=== PATIENT | male | born 1960 | race Caucasian/White ===

== ENCOUNTER 2019-06-13 18:13 | Observation (INO) | payer MEDICAID, SELFPAY ==
[2015-06-07 19:12] VITALS: BMI 24.7
--- NOTE | 2019-06-13 17:46 | HP.PCM_ITS ---
History of Present Illness Date of Admission: 06/13/19 Chief Complaint: chest pain The patient is a 59 year old M with past medical history of CAD status post stents x3 in 2014 at [facility] as well as hypertension and hyperlipidemia. He was admitted as a transfer from [facility] on 06/13/2019. He had reported to the above-mentioned outside hospital with a complaint of chest pain and exertional shortness of breath for 2 days prior to admission. Chest pain was pressure-like and burning and aggravated by the slightest exertion and relieved by rest. He was seen with a shortness of breath which was severely worsened by exertion and then relieved by rest. He therefore decided to come into the ED as he said he felt a similar way when he came in with chest pain 4 years ago and was transferred to [facility] and had stents placed. Per workup done at [facility], EKG showed no acute ST changes. Initial troponin was negative and BNP was only 17. Labs were otherwise within normal limits. He has been admitted to be managed for chest pain to rule out ACS. [] Past Medical History Past Medical History (Chronic Problems): Chronic Problems GERD (gastroesophageal reflux disease) (Chronic) Palpitations (Chronic) Nicotine dependence (Chronic) Allergies No Known Allergies Allergy (Verified 10/27/14 15:15) Home Medications: Ambulatory Orders Medication Instructions Recorded Aspirin [Aspirin, Baby] 81 mg PO DAILY@0800 01/13/14 Clopidogrel Bisulfate [Clopidogrel] 75 mg PO DAILY 01/28/14 Simvastatin [Zocor] 40 mg PO QHS 10/27/14 Lisinopril [Zestril] 5 mg PO DAILY 06/01/15 Omeprazole [Prilosec] 20 mg PO DAILY 06/01/15 Oxycodone HCl/Acetaminophen 1 - 2 tablet PO Q4H PRN PRN 06/01/15 [Percocet 5/325] Enoxaparin [Lovenox] 40 mg SC DAILY@0600 06/07/15 Alogliptin Benzoate [Alogliptin] 12.5 mg PO DAILY 06/13/19 Surgical History: - - He had his right index finger amputated in an accident at the [facility]. stents x 3 Psychiatric History: No pertinent psych hx Lives: Alone Smoking Status: Former smoker Alcohol: None Drugs: Marijuana - *Family History Maternal History Items: No pertinent history Paternal History Items: Cancer - His father of lung cancer at a young age., No pertinent history Sibling History Items: Heart Disease - He has 2 brothers who have had coronary artery bypass grafting and another brother who has had stents. Review of Systems Constitutional: Denies: Chills, Fever, Weight Change Eyes: Denies: Blurred vision HEENT: Denies: Head Aches, Sinus Congestion, Sinus Drainage Cardiovascular: Reports: Chest Pain, Chest Pressure. Denies: Chest Tightness, Edema, Heaviness, Light Headedness, Orthopnea, Paroxysmal Noc. Dyspnea, Syncope Respiratory: Reports: Shortness of Breath, Shortness of breath upon exertion. Denies: Cough, Shortness of breath at rest, Sputum production Gastrointestinal: Denies: Abdominal Pain, Nausea, Vomiting Genitourinary: Denies: Dysuria Musculoskeletal: Denies: Joint Pain, Joint Tenderness Skin: Denies: Rash, Wounds Neurological: Denies: Numbness, Tingling, Focal weakness Psychiatric: Denies: Anxiety, Depression, Homicidal Ideations, Suicidal Ideations Hematologic/ Lymphatic: Denies: Easy Bruising, Easy Bleeding VTE Information - Inpt Only VTE Present on Admission: No VTE Pharm Prophylaxis ordered?: Yes - Physical Exam General: Alert, Oriented x3, Cooperative, No apparent distress HEENT: Atraumatic, PERRLA, EOMI, Normocephalic Oral: Moist Mucosa Neck: Supple, No JVD, Negative Carotid Bruits Lungs: Clear to auscultation, Normal air movement, No rhonchi, No wheeze Cardiovascular: Regular rate, Regular Rhythm, Normal S1, Normal S2, No murmurs Abdomen: Bowel Sounds Present, Soft, Non Tender, Non-Distended, No Hepato-splen omegaly Extremities: No clubbing, No cyanosis, No edema, Capillary Refill Less than 3 Seconds Skin: No rashes, No breakdown Musculoskeletal: No Tenderness to Palpation of Joints or Extremities Lymphatic: No Cervical, Supraclavicular, or Inguinal Adenopathy Neurological: Cranial nerves II-XII grossly intact, Neuro grossly intact, Motor Exam 5/5 strength throughout Psych/Mental Status: Normal Affect, Appropriate, Alert and oriented to time, place, person, mood and affect Body Mass Index (BMI) 24.7 Finger Stick Blood Glucose 195 Assessment/Plan All Active Problems HTN (hypertension) (Acute) Chest pain (Acute) Hyperglycemia (Acute) 59-year-old admitted with a complaint of chest pain and exertional shortness of breath. 1. Chest pain, to r/o ACS * admit to PCU with telemetry * cycle troponins * repeat EKG * SL nitroglycerin prn; continue aspirin 81mg daily * consult cardiology-Dr. Mitchell the patient would benefit from cardiac cath in the office stress test for us on account of his classic symptoms and history of CAD with 3 stents. * keep NPO past midnight for cardiac cath * continue plavix and high intensity statin * 2D echo * 2. Hypertension: on lisinopril and metoprolol. Fairly controlled 3. Hyperlipidemia: on statin DVT prophylaxis: lovenox Code Visit OBSV E&M: 32203 Initial observation care L3
[2019-06-13 17:47] VITALS: BP 146/78; PULSE 80; RESP 16; TEMP 36.7; O2SAT 97
[2019-06-13 17:54] VITALS: BMI 23.9
[2019-06-13 17:56] VITALS: BMI 23.9
[2019-06-13 18:27] VITALS: PULSE 75
[2019-06-13 18:36] LABS: Cholesterol 148 mg/dL (200); High Density Lipoprotein 34 mg/dL; Triglycerides 364 mg/dL; Very Low Density Lipoprotein 73 mg/dL (5-40)
[2019-06-13 18:55] VITALS: PULSE 102
[2019-06-13 19:44] VITALS: O2SAT 97
[2019-06-13 21:27] LABS: Hemoglobin A1c 7.2 % (4.2-6.3)
[2019-06-13 22:19] VITALS: BP 103/73; PULSE 84; RESP 11; TEMP 36.6; O2SAT 96
--- NOTE | 2019-06-13 22:29 | NURSING ---
Pt upset at this time. Pt doesn't want bothered overnight. States you go to the doctor to get rest. This RN educated pt that we need to monitor him. This RN told pt that she will be into his room around 04:00 to check his vital signs.
[2019-06-14] VITALS (20 sets, daily range): BP systolic 109–164; BP diastolic 57–104; PULSE 73–103; RESP 7–20; TEMP 36.5–37.1; O2SAT 94–99
--- NOTE | 2019-06-14 05:55 | ECHOD_ITS ---
Reason For Study: Chest pain Procedure This was a 2D Doppler, Color Flow transthoracic echocardiogram. Exam performed portable in patient room. Left Ventricle Normal LV size. The estimated ejection fraction is 45-50 %. Stage 1 diastolic dysfunction. There is mild global hypokinesis of the left ventricle. Right Ventricle Normal RV size. Normal systolic function. Atria Normal left atrium. Normal right atrium. No doppler evidence for ASD. Mitral Valve There is no mitral valve stenosis. Trivial mitral valve insufficiency. Tricuspid Valve There is no tricuspid stenosis. Trivial tricuspid valve insufficiency. Unable to estimate RV systolic pressure due to insufficient tricuspid regurgitant envelope. Aortic Valve Trisinus/trileaflet aortic valve. There is no aortic stenosis. No aortic valve insufficiency. Pulmonic Valve There is no pulmonic valvular stenosis. No pulmonic valve insufficiency. Great Vessels Normal aortic root. Pericardium/Pleural No pericardial effusion. MMode/2D Measurements & Calculations LVIDd: 4.4 cm IVSd: 0.83 cm Ao root diam: 3.0 cm LVIDs: 3.0 cm LVPWd: 0.91 cm RVDd: 2.7 cm FS: 32.7 % LAV(MOD-bp): 25.1 ml LA A4 area: 11.7 cm2 LA dimension(2D): 3.0 cm LAV(MOD-bp) Indexed: 15.8 ml/m2 LAV(MOD-sp2): 21.4 ml LAV(MOD-sp4): 26.7 ml RA A4 area: 10.6 cm2 Doppler Measurements & Calculations MV E max momo: 44.4 cm/sec Lat Peak E' Momo: 7.4 cm/sec Med Peak E' Momo: 4.4 cm/sec MV A max momo: 52.5 cm/sec E/E' lat: 6.0 E/E' med: 10.1 MV E/A: 0.85 Ao V2 max: 84.9 cm/sec LV V1 max: 70.1 cm/sec PA V2 max: 88.2 cm/sec Ao max P.9 mmHg LV V1 max P.0 mmHg TR max momo: 195.7 cm/sec TR max P.3 mmHg Interpretation Summary The estimated ejection fraction is 45-50 %. Stage 1 diastolic dysfunction. Trivial mitral valve insufficiency. Ordering Physician: Yadira Gandara Referring Physician: MD Anu Karthik Performed By: Kina Hughes RDCS
[2019-06-14 05:58] LABS: Absolute Lymphocyte Count 2.43 X10^3/uL (0.83-4.51); Absolute Neutrophil Count 5.2 X10^3/uL (2.0-7.7); Basophil# 0.08 X10^3/uL; Basophil% 0.9 % (0-1); Eosinophil# 0.18 X10^3/uL; Eosinophils% 2.1 % (0-5); Hematocrit 42.2 % (40-54); Hemoglobin 13.5 g/dL (13.0-16.5); Lymphocyte # 2.43 X10^3/ul (4.0); Mean Corpuscular Hgb 29.1 pg (27.0-32.0); Mean Corpuscular Volume 90.9 fL (80-94); Mean Platelet Vol. 8.7 fl (6.2-12.0); Monocyte# 0.78 X10^3/uL; NRBC Flagged by Analyzer 0 % (0-5); Neutrophil # 5.17 X10^3/uL (2.7-7.7); Neutrophil % 59.7 % (47-70); Platelet Count 249 K/mm3 (150-450); RBC Distribution Width CV 12.1 % (11.6-14.6); RBC Distribution Width SD 40.4 fl (35.1-43.9); Red Blood Count 4.64 M/mm3 (4.6-6.2); White Blood Count 8.7 K/mm3 (4.4-11.0)
[2019-06-14 06:12] LABS: Anion Gap 7 (5-15); BUN 15 mg/dL (7-18); BUN/Creat Ratio 14.3 RATIO (10-20); Chloride 110 mmol/L (98-107); Creatinine, Serum 1.05 mg/dL (0.70-1.30); EST Glomerular Filtration Rate 77 mL/min (>60); Est Glom Filt Rate - Afr Amer 94 mL/min (>60); Estimated Creatinine Clearance 59.94 ml/min; Glucose 143 mg/dL (74-106); Potassium 4.2 mmol/L (3.5-5.1); Sodium Level 143 mmol/L (136-145)
--- NOTE | 2019-06-14 09:25 | CASEMGMT ---
According to the [facility] Community plan website, the following are in-network tertiary facilities: [facility], [facility], [facility], [facility], [facility], [facility], [facility], [facility], [facility], and . Prateek GUERRERO CM
--- NOTE | 2019-06-14 12:02 | CON.PCM_ITS ---
Problem List (1) Chest pain Status: Acute Reason for Consult Date of Consultation: 06/14/19 Reason for Consultation: chest pain History of Present Illness: The patient is a 59 year old M with past medical history of CAD status post stents x3(mid and proximal RCA, 3.5mm BMS) in 2014 at [facility] as well as hypertension and hyperlipidemia. He was admitted as a transfer from [facility] on 06/13/2019. He had reported to the above-mentioned outside hospital with a complaint of chest pain and exertional shortness of breath for 2 days prior to admission. Chest pain was pressure-like and burning and aggravated by the slightest exertion and relieved by rest. He was seen with a shortness of breath which was severely worsened by exertion and then relieved by rest. He therefore decided to come into the ED as he said he felt a similar way when he came in with chest pain 4 years ago and was transferred to [facility] and had stents placed. Per workup done at [facility], EKG showed no acute ST changes. Initial troponin was negative and BNP was only 17. Labs were otherwise within normal limits. He has been admitted to be managed for chest pain to rule out ACS. Review of systems: All systems reviewed. Also is negative except that in the HPI. Past Medical History Allergies/Adverse Reactions: Allergies No Known Allergies Allergy (Verified 10/27/14 15:15) Home Medications: Ambulatory Orders Medication Instructions Recorded Aspirin [Aspirin, Baby] 81 mg PO DAILY@0800 01/13/14 Clopidogrel Bisulfate [Clopidogrel] 75 mg PO DAILY 01/28/14 Simvastatin [Zocor] 40 mg PO QHS 10/27/14 Lisinopril [Zestril] 5 mg PO DAILY 06/01/15 Omeprazole [Prilosec] 20 mg PO DAILY 06/01/15 Oxycodone HCl/Acetaminophen 1 - 2 tablet PO Q4H PRN PRN 06/01/15 [Percocet 5/325] Alogliptin Benzoate [Alogliptin] 12.5 mg PO DAILY 06/13/19 Metoprolol Succinate 50 mg PO DAILY 06/13/19 metFORMIN (XR) [Glucophage Xr] 1,000 mg PO BID 06/13/19 Past Medical History (Chronic Problems): Chronic Problems GERD (gastroesophageal reflux disease) (Chronic) Palpitations (Chronic) Nicotine dependence (Chronic) Surgical History: - - He had his right index finger amputated in an accident at the [facility]. stents x 3 Psychiatric History: No pertinent psych hx - *Family History Maternal History Items: No pertinent history Paternal History Items: Cancer - His father of lung cancer at a young age., No pertinent history Sibling History Items: Heart Disease - He has 2 brothers who have had coronary artery bypass grafting and another brother who has had stents. Lives: Alone Smoking Status: Former smoker Alcohol: None Drugs: Marijuana Objective: Vital Signs Temp Pulse Resp BP Pulse Ox 98 F 82 16 145/73 H 96 06/14/19 11:30 06/14/19 11:30 06/14/19 11:30 06/14/19 11:30 06/14/19 11:30 Oxygen Delivery Method Room Air Weight: 130 lb 11.746 oz Body Mass Index (BMI) 23.9 Finger Stick Blood Glucose 195 Intake and Output for Last 24 Hours 06/12/19 06/13/19 06/14/19 23:59 23:59 23:59 Intake Total 0 / 0 120 / 120 Output Total 0 / 0 0 / 0 Balance 0 / 0 120 / 120 General: Awake, Alert, Oriented x 3 HEENT: Atraumatic Oral: Moist Mucosa Neck: Supple Lungs: Clear to auscultation Cardiovascular: Regular Rhythm Abdomen: Soft Extremities: No edema Skin: No Rashes Psych/Mental Status: Appropriate 06/13/19 18:03: Troponin I < 0.015, Triglycerides 364 H, Cholesterol 148, LDL Cholesterol 41, VLDL Cholesterol 73 H, HDL Cholesterol 34 L 06/13/19 20:40: Troponin I < 0.015 06/13/19 20:47: Hemoglobin A1c 7.2 H 06/14/19 00:40: Troponin I < 0.015 06/14/19 05:34: WBC 8.7, RBC 4.64, Hgb 13.5, Hct 42.2, MCV 90.9, MCH 29.1, MCHC 32.0, Plt Count 249, MPV 8.7, Immature Gran % (Auto) 0.300, Neut % (Auto) 59.7, Lymph % (Auto) 28.0, [place] % (Auto) 9.0, Eos % (Auto) 2.1, Baso % (Auto) 0.9, Absolute Neuts (auto) 5.2, Nucleated RBC % 0 06/14/19 05:34: Sodium 143, Potassium 4.2, Chloride 110 H, Carbon Dioxide 26.0, Anion Gap 7, BUN 15, Creatinine 1.05, Est GFR (MDRD) Af Amer 94, Est GFR (MDRD) Non-Af 77, BUN/Creatinine Ratio 14.3, Glucose 143 H, Calcium 9.0 Rhythm: EKG: ECHO: Stress Test: Cardiac Cath: PCI: CT Surgery: Holter monitor: EPS: PPM: CXR: Chest CT Scan: Assessment/Plan 1. Chest pain: Patient's chest pain is similar to what he felt prior to PCI in 2015. I think it will be reasonable to proceed with coronary angiography to evaluate this chest pain further. He did have other residual stenoses which were not severe enough at that time to require PCI. Risks and benefits discussed with the patient in detail.
--- NOTE | 2019-06-14 13:59 | NURSING ---
verbal report given tran cunningham rn in [facility] [employer]
--- NOTE | 2019-06-14 15:43 | NURSING ---
verbal report given to CESAR soto in ICU
--- NOTE | 2019-06-14 16:00 | EKG12_ITS ---
Test Reason : AM EKG Blood Pressure : / mmHG Vent. Rate : 081 BPM Atrial Rate : 081 BPM P-R Int : 160 ms QRS Dur : 096 ms QT Int : 378 ms P-R-T Axes : 047 -42 043 degrees QTc Int : 439 ms Normal sinus rhythm Left axis deviation Nonspecific ST abnormality Abnormal ECG Confirmed by JELANI PRINCE, JESUS ([id number]), map editor VIC HERRON ([id number]) on 06/26/2019 2:22:24 PM Referred By: Yadira Gandara Confirmed By:JESUS PALOMARES MD
[2019-06-14] MEDS: 0.9% Normal Saline 1,000 ML 60 ML IV (16:45)
--- NOTE | 2019-06-14 17:34 | PCM.PROGNOTE ---
Subjective: Patient was seen and examined today in the ICU, he underwent coronary angiography today and had a balloon angioplasty of the right coronary artery near his previous stent. Today there is been some swelling in his left forearm, cardiology is aware of this and is examining him in the ICU. Patient is able to move the fingers of his right hand, he has some pain in his right forearm and his forearm is swollen and firm but the patient does not appear to be an acute distress. - Physical Exam General: Alert, Oriented x3, Cooperative, No apparent distress, Well developed, Well nourished HEENT: Atraumatic, PERRLA, EOMI, Normocephalic Oral: Moist Mucosa Neck: Supple, Trachea Midline, Thyroid Normal Size and Texture Lungs: Clear to auscultation, Normal air movement, No rhonchi, No wheeze, No rales Cardiovascular: Regular rate, Regular Rhythm, Normal S1, Normal S2, No murmurs, PMI Normal, No rub noted Abdomen: Bowel Sounds Present, Soft, Non Tender, Non-Distended Extremities: No clubbing, No cyanosis, Capillary Refill Less than 3 Seconds, Edema - Generalized edema is noted in the patient's right forearm Skin: No rashes, No breakdown Musculoskeletal: No Tenderness to Palpation of Joints or Extremities Neurological: Cranial nerves II-XII grossly intact, Neuro grossly intact, Sensory exam intact to light touch and pain Psych/Mental Status: Normal Affect, Appropriate, Alert and oriented to time, place, person, mood and affect Vital Signs Temp Pulse Resp BP Pulse Ox 98 F 73 16 142/73 H 98 06/14/19 11:30 06/14/19 16:30 06/14/19 16:30 06/14/19 16:30 06/14/19 17:01 Oxygen Delivery Method Room Air Weight: 59.3 kg Body Mass Index (BMI) 23.9 Finger Stick Blood Glucose 195 Intake and Output for Last 24 Hours 06/12/19 06/13/19 06/14/19 23:59 23:59 23:59 Intake Total 0 / 0 120 / 120 Output Total 0 / 0 0 / 0 Balance 0 / 0 120 / 120 Laboratory Tests Past 24 Hrs 06/13/19 06/13/19 06/13/19 18:03 20:40 20:47 WBC RBC Hgb Hct MCV MCH MCHC RDW Std Deviation RDW Coeff of Mendez Plt Count MPV Immature Gran % (Auto) Neut % (Auto) Lymph % (Auto) [place] % (Auto) Eos % (Auto) Baso % (Auto) Absolute Neuts (auto) Absolute Lymphs (auto) Nucleated RBC % Sodium Potassium Chloride Carbon Dioxide Anion Gap BUN Creatinine Estim Creat Clear Calc Est GFR (MDRD) Af Amer Est GFR (MDRD) Non-Af BUN/Creatinine Ratio Glucose Hemoglobin A1c 7.2 H Calcium Troponin I < 0.015 < 0.015 Triglycerides 364 H Cholesterol 148 LDL Cholesterol 41 VLDL Cholesterol 73 H HDL Cholesterol 34 L 06/14/19 06/14/19 06/14/19 00:40 05:34 05:34 WBC 8.7 RBC 4.64 Hgb 13.5 Hct 42.2 MCV 90.9 MCH 29.1 MCHC 32.0 RDW Std Deviation 40.4 RDW Coeff of Mendez 12.1 Plt Count 249 MPV 8.7 Immature Gran % (Auto) 0.300 Neut % (Auto) 59.7 Lymph % (Auto) 28.0 [place] % (Auto) 9.0 Eos % (Auto) 2.1 Baso % (Auto) 0.9 Absolute Neuts (auto) 5.2 Absolute Lymphs (auto) 2.43 Nucleated RBC % 0 Sodium 143 Potassium 4.2 Chloride 110 H Carbon Dioxide 26.0 Anion Gap 7 BUN 15 Creatinine 1.05 Estim Creat Clear Calc 59.94 Est GFR (MDRD) Af Amer 94 Est GFR (MDRD) Non-Af 77 BUN/Creatinine Ratio 14.3 Glucose 143 H Hemoglobin A1c Calcium 9.0 Troponin I < 0.015 Triglycerides Cholesterol LDL Cholesterol VLDL Cholesterol HDL Cholesterol Medical Necessity - Tobacco Use Smoking Status: Former smoker Assessment/Plan All Active Problems HTN (hypertension) (Acute) Chest pain (Acute) Hyperglycemia (Acute) #1 occlusive coronary artery disease right coronary artery-status post balloon angioplasty right coronary artery postop day 0-continue present care, cardiology is participating in his care #2 hypertension #3 hyperlipidemia #4 edema in the right forearm-probably secondary to extravasation of blood into the surrounding tissues from patient's cardiac catheterization-continue to observe per cardiology Code Visit Inpatient E&M: 42014 Subs Hosp L2
--- NOTE | 2019-06-14 18:03 | CL.I_ITS ---
Patient Name: ROSALIA HE Study Date: 06/14/2019 Performing: Yeimi Mitchell MD Ht: 62 inches 157 cm : 1960 Wt: 130.2 lbs 59 kg Age: 59 Gender: male BSA: 1.59 PROCEDURE(S) PERFORMED [id number]/LV [id number] GUIDED ACCESS [id number], SINGLE CORONARY ARTERY CLINICAL PROFILE AND CO-MORBIDITIES Indications: ACS <= 24 hrs Heart Failure: None Stress/Imaging Stress/Image Study Performed: No CAD Presentations: Unstable angina. CONCLUSIONS CAD as described. Successful PTCA of ISR of RCA. RECOMMENDATIONS Follow up with primary city secretary GALINA Samuel for at least 12 months DESCRIPTION OF PROCEDURE The patient arrived to the procedure lab. The risks and benefits of the procedure as well as a full d escription of our services here and lack of surgical backup were fully explained to the patient and/o r their significant other prior to the catheterization. The Timeout was completed, verifying the brianna ect patient and procedure. The patient's procedural site was prepped and draped in the usual fashion. Local anesthetic was given subcutaneously to right radial region with Lidocaine 2%. Using a modified Seldinger technique, and ultrasound guidance,arterial access was obtained via the right ulnar a 6Fr sheath was inserted.. Left Coronary Artery selective angiography was performed in multiple views us ing a 5 Fr. JL3.5 catheter. Right Coronary Artery selective angiography was then performed in multipl e views using a 5 Fr. JR 4 catheter. Left Ventriculography was performed in LUCAS projection using a 5 Fr. JR 4. LV to AO pullback pressures were then recorded. Right Coronary Artery selective angiography was then performed in multiple views using a 5 Fr. JR 4 catheter. Anomalous Circumflex Ar parrish selective angiography was then performed in multiple views using a 5 Fr. AL 1 catheter JR 4 Guide catheter was inserted and engaged into the RCA. BMW Guide wire was advanced to the RCA . Emerge [id number] Balloon catheter was inserted. PTCA balloon inflated at 6 atms for 16 secs. Angiogr am performed post balloon dilatation. The arterial sheath was pulled and a TR Band was applied for hemostasis w/ 12ml air CORONARY ANGIOGRAPHY DOMINANCE: Right Dominant LEFT HEART ASSESSMENT Left Ventricular Ejection Fraction: by LV Gram 55 % Inferior Hypokinesis - Mild LEFT MAIN: Mild luminal irregularities LEFT ANTERIOR DESCENDING ARTERY: MID LAD: 60 % Stenosis CIRCUMFLEX ARTERY: PROX CIRC: 65 % Stenosis. 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 RIGHT CORONARY ARTERY: MID RCA: 95 % Stenosis VALVE FINDINGS: No Aortic Valve Stenosis No Mitral Insufficency INTERVENTION INFORMATION LESION SITE: RCA (Mid) Lesion Complexity: High/C, chronic total occlusion: No, lesion at bifurcation: No, thrombus present: No, lesion length: 6 mm, culprit lesion: Yes, culprit lesion: Yes, Previously treated lesion: Yes, In -stent restenosis: Yes, Timeframe of previous treatment: >2 years, Previously treated with a stent: Y es Stent Type: with Non-YOHANNES Pre Stenosis: 95 % Pre intervention ANALI flow: 3 PROCEDURE: Balloon Angioplasty Post Stenosis: 0 % Post intervention ANALI flow: 3 Lesion Devices: Hodge .014 BMW [place] Straight 190cm Daniel Sci EMERGE MR 3.50x12 BALLOON Medtronic 6 Fr JR4.0 100cm Guide Catheter COMPLICATIONS No Complications PROCEDURE MEDICATIONS Versed 1 mg IV Fentanyl 50 mcg IV Versed 1 mg IV Fentanyl 25 mcg IV Fentanyl 25 mcg IV Oxygen: 2 L/min via nasal cannula Baby Aspirin (81mg) 1 Tabs PO 06/14/2019 15:44:00 Brilinta 180 mg PO @ 06/14/2019 15:44:09 Heparin given IA 06/14/2019 14:58:00 Heparin 1000 unit(s) IV 06/14/2019 15:18:02 Verapamil 2.5mg, Ntg 100mcgs, 3000 units of Heparin given IA 06/14/2019 14:58:00 SUMMARY OF HEMODYNAMIC DATA Time AIR REST ECG 14:30:59 AO 118/83 (98) SA 15:00:13 LV 153/-15, 3 15:03:53 LV 126/-11, 2 15:03:59 LV 130/-11, 4 15:04:36 LVp 133/-11, 2 15:04:42 AOp 132/79 (99) 15:04:47 Signed By Yeimi Mitchell MD On 06/14/2019 6:03:02 PM Yeimi Mitchell MD
[2019-06-14] MEDS: Atorvastatin Calcium 20 MG Tablet PO (21:34)
[2019-06-14] MEDS: TICAGRELOR 90 MG TABLET PO (21:35)
[2019-06-15] VITALS (13 sets, daily range): BP systolic 113–152; BP diastolic 66–98; PULSE 79–108; RESP 11–20; TEMP 36.1–36.9; O2SAT 94–99
[2019-06-15 04:24] LABS: Hemoglobin 12.5 g/dL (13.0-16.5); Mean Corp Hgb Conc 32.9 g/dL (32-36); Mean Corpuscular Hgb 29.6 pg (27.0-32.0); Mean Platelet Vol. 8.7 fl (6.2-12.0); Platelet Count 239 K/mm3 (150-450); RBC Distribution Width CV 12.1 % (11.6-14.6); RBC Distribution Width SD 39.8 fl (35.1-43.9); Red Blood Count 4.22 M/mm3 (4.6-6.2); White Blood Count 8.7 K/mm3 (4.4-11.0)
[2019-06-15 04:44] LABS: ALB/GLOB Ratio 1.1 RATIO (0.9-2.4); AST(SGOT) 22 U/L (15-37); Alanine Aminotransfer ALT/SGPT 36 U/L (16-61); Albumin, Serum 3.5 g/dL (3.2-5.0); Alkaline Phosphatase 50 U/L (45-117); Anion Gap 6 (5-15); BUN 16 mg/dL (7-18); BUN/Creat Ratio 14.7 RATIO (10-20); Calcium,Total 8.4 mg/dL (8.5-10.1); Chloride 110 mmol/L (98-107); Creatinine, Serum 1.09 mg/dL (0.70-1.30); EST Glomerular Filtration Rate 74 mL/min (>60); Est Glom Filt Rate - Afr Amer 90 mL/min (>60); Estimated Creatinine Clearance 57.74 ml/min; Globulin 3.3 g/dL (2.2-4.2); Glucose 155 mg/dL (74-106); Protein, Total 6.8 g/dL (6.4-8.2); Sodium Level 143 mmol/L (136-145)
[2019-06-15] MEDS: LINAGLIPTIN 5 MG TABLET PO (08:52)
[2019-06-15] MEDS: Pantoprazole Sodium 20 MG Tablet PO (08:52)
[2019-06-15] MEDS: TICAGRELOR 90 MG TABLET PO (08:52)
[2019-06-15] MEDS: Aspirin 81 MG TAB.CHEW PO (08:52)
[2019-06-15] MEDS: Metoprolol(XL)Succ 50 MG Tablet PO (08:52)
[2019-06-15] MEDS: Lisinopril 5 MG Tablet PO (08:53)
--- NOTE | 2019-06-15 09:46 | CM.UR ---
Patient will be discharged on Brilinta. Has [facility] community health plan. Per 2019 drug formulary Medication will cost $3.80 to $8.50 for the tier that Brilinta is on. Patient states that he has never had a copay for medication. Gets his medications from Tania Dangelo RN, CCM.
--- NOTE | 2019-06-15 11:35 | PCM.PN.CARD ---
Subjectve: The patient dates he feels better today. He denies any ongoing chest discomfort or difficulty breathing. He notes his right forearm feels better overall. He denies any loss of sensation or motor skills. Objective: Vital Signs Temp Pulse Resp BP Pulse Ox 98.3 F 90 11 L 145/82 H 95 06/15/19 08:00 06/15/19 10:00 06/15/19 10:00 06/15/19 10:00 06/15/19 10:00 Oxygen Delivery Method Room Air Weight: 130 lb 11.746 oz Body Mass Index (BMI) 23.9 Finger Stick Blood Glucose 195 Intake and Output for Last 24 Hours 06/13/19 06/14/19 06/15/19 23:59 23:59 23:59 Intake Total 0 / 0 960 / 1200 340 / 340 Output Total 0 / 0 400 / 400 300 / 300 Balance 0 / 0 560 / 800 40 / 40 General: Awake, Alert, Oriented x 3, Cooperative, No Acute Distress HEENT: Atraumatic, Normocephalic, PERRL, EOMI, Sclera Non Icteric Oral: Moist Mucosa Neck: Supple, Good ROM, No JVD Lungs: Clear to auscultation Cardiovascular: Regular Rhythm, Normal S1, Normal S2 - Normal right ulnar pulse Abdomen: Bowel Sounds Present, Soft, Non Tender Extremities: No edema, - - Right forearm: Hematoma: Mild appearing: Right ulnar pulse 2+/4+ with no obvious bruit Psych/Mental Status: Appropriate 06/15/19 04:10: WBC 8.7, RBC 4.22 L, Hgb 12.5 L, Hct 38.0 L, MCV 90.0, MCH 29.6, MCHC 32.9, Plt Count 239, MPV 8.7 06/15/19 04:10: Sodium 143, Potassium 4.0, Chloride 110 H, Carbon Dioxide 27.0, Anion Gap 6, BUN 16, Creatinine 1.09, Est GFR (MDRD) Af Amer 90, Est GFR (MDRD) Non-Af 74, BUN/Creatinine Ratio 14.7, Glucose 155 H, Calcium 8.4 L, Total Bilirubin 0.60 Rhythm: Sinus rhythm EKG: Sinus rhythm; left axis deviation; nonspecific T wave change Medical Necessity - Tobacco Use Smoking Status: Former smoker Assessment/Plan 1. CAD status post RCA PCI/PTCA/no stent The patient has subsequently undergone further evaluation in the cardiac catheterization laboratory. This led to a diagnosis of RCA in-stent restenosis. He subsequently underwent RCA PTCA/no stent. He was reported as having good angiographic results. He feels better. He appears to be symptomatically stable. He has had no acute cardiovascular findings since his procedures with respect to ongoing acute coronary syndrome type symptoms/events. He will need to continue medical therapy and outpatient follow-up. 2. Right forearm hematoma He does have a right forearm hematoma. It appears to be mild at this time. He has no loss of sensory or motor function in his right upper extremity. His H&H appears to be stable at this time. He will continue to monitor this. He will continue with outpatient follow-up. 3. Hyperlipidemia He will continue medical management. 4. Hypertension He will need to continue medical therapy with adjustment as needed. Comment: The patient's case was discussed and reviewed with patient and Dr. Graff. This note was generated with [employer] dictation software. It may contain incorrect words, spelling, and punctuation that were not noted in checking the note before signing.
--- NOTE | 2019-06-15 11:41 | DCINST_ITS ---
You will use the following diet at home:: Calorie/Carbohydrate Controlled (specify 1200, 1400, etc) - 1800 carlos Your food should be the consistency of: Regular Your liquids should be the consistency of: Regular/Thin Discharge Activity: Return to Normal Activity Weight Bearing Status: Full weight bearing Allergies/Adverse Reactions: Allergies No Known Allergies Allergy (Verified 10/27/14 15:15) Medications to take at Discharge Aspirin [Aspirin, Baby] 81 mg PO DAILY@0800 01/13/14 Simvastatin [Zocor] 40 mg PO QHS 10/27/14 Lisinopril [Zestril] 5 mg PO DAILY 06/01/15 Omeprazole [Prilosec] 20 mg PO DAILY 06/01/15 Oxycodone HCl/Acetaminophen [Percocet 5-325] 1 - 2 tablet PO Q4H PRN PRN 06/01/15 Alogliptin Benzoate [Alogliptin] 12.5 mg PO DAILY 06/13/19 Metoprolol Succinate 50 mg PO DAILY 06/13/19 metFORMIN (XR) [Glucophage Xr] 1,000 mg PO BID 06/13/19 Ticagrelor [Brilinta] 90 mg PO BID #60 tab 06/15/19 The following prescriptions were given: Ticagrelor [Brilinta] 90 mg PO BID #60 tab Prescription Printed Primary Care Physician: Karthik Brennan DO [Primary Care Provider] - Please follow up with your Primary Care Physician in: in 2-3 weeks Test Results: Test results from this visit will be discussed in further detail at your follow- up appointment, if applicable. Please Follow Up With: Zakiya Mitchell MD When: as directed
--- NOTE | 2019-06-15 17:48 | PCM.DC.SUM ---
Discharge Date and Diagnosis Date of Admission: 06/13/19 Date of Discharge: 06/15/19 - Primary Discharge Diagnosis 1 occlusive coronary artery disease right coronary artery #2 unstable angina #3 hypertension #4 hyperlipidemia #5 edema in the right forearm-probably secondary to extravasation of blood into the surrounding tissues from patient's cardiac catheterization #6 uncontrolled type 2 diabetes - Secondary Discharge Diagnosis Chronic Problems GERD (gastroesophageal reflux disease) (Chronic) Palpitations (Chronic) Nicotine dependence (Chronic) Hospital Course and Treatment Operations: None Procedures: 2-D Echocardiogram, Cardiac catheterization - PTCA of right coronary artery Summary of Care Provided: The patient is a 59 year old M was admitted to PCU on telemetry as a direct admission from [facility] where he went to the emergency room for evaluation of chest pain. Patient's troponins were unremarkable at the time of admission, patient had a history of coronary artery disease with 3 coronary artery stents previously placed. Patient is cardiac enzymes are cycled and these remain normal, he was seen in consultation by radiology who advised repeat cardiac catheterization-this was performed on 06/14/2019 and it showed occlusive coronary artery disease to the right coronary artery near the location of the previous stent in the vicinity. This area underwent balloon angioplasty but no stent was able to be placed in the area. Patient had some mild swelling of his right arm after the procedure was finished but this did not appear to be a problem. Patient had no significant arrhythmias during his stay in the ICU. On 06/15/2019, patient was seen and examined: On examination he appeared in good health and spirits. Vital signs as documented. Skin warm and dry and without overt rashes. Neck without JVD. Lungs clear. Heart exam notable for regular rhythm, normal sounds and absence of murmurs, rubs or gallops. Abdomen unremarkable and without evidence of organomegaly, masses, or abdominal aortic enlargement. Extremities-there is some mild edema of the right forearm noted to be present. Neuro: Cranial nerves II through XII are grossly intact, no focal motor deficits were noted, sensation to light touch and pinprick intact. Psych: Patient is alert and oriented x3, he does not appear anxious or depressed On 06/07/2019, patient was seen and examined felt to be in stable condition for discharge home - Physical Exam Vital Signs Temp Pulse Resp BP Pulse Ox 98.3 F 90 11 L 145/82 H 95 06/15/19 08:00 06/15/19 10:00 06/15/19 10:00 06/15/19 10:00 06/15/19 10:00 Oxygen Delivery Method Room Air Weight: 59.3 kg Body Mass Index (BMI) 23.9 Finger Stick Blood Glucose 195 Intake and Output for Last 24 Hours 06/13/19 06/14/19 06/15/19 23:59 23:59 23:59 Intake Total 0 / 0 960 / 1200 340 / 340 Output Total 0 / 0 400 / 400 300 / 300 Balance 0 / 0 560 / 800 40 / 40 Laboratory Tests Past 24 Hrs 06/15/19 06/15/19 04:10 04:10 WBC 8.7 RBC 4.22 L Hgb 12.5 L Hct 38.0 L MCV 90.0 MCH 29.6 MCHC 32.9 RDW Std Deviation 39.8 RDW Coeff of Mendez 12.1 Plt Count 239 MPV 8.7 Sodium 143 Potassium 4.0 Chloride 110 H Carbon Dioxide 27.0 Anion Gap 6 BUN 16 Creatinine 1.09 Estim Creat Clear Calc 57.74 Est GFR (MDRD) Af Amer 90 Est GFR (MDRD) Non-Af 74 BUN/Creatinine Ratio 14.7 Glucose 155 H Calcium 8.4 L Total Bilirubin 0.60 AST 22 ALT 36 Alkaline Phosphatase 50 Total Protein 6.8 Albumin 3.5 Globulin 3.3 Albumin/Globulin Ratio 1.1 Discharge Activity: Return to Normal Activity Weight Bearing Status: Full weight bearing Home Medications: Medications to take at Discharge Aspirin [Aspirin, Baby] 81 mg PO DAILY@0800 01/13/14 Simvastatin [Zocor] 40 mg PO QHS 10/27/14 Lisinopril [Zestril] 5 mg PO DAILY 06/01/15 Omeprazole [Prilosec] 20 mg PO DAILY 06/01/15 Oxycodone HCl/Acetaminophen [Percocet 5-325] 1 - 2 tablet PO Q4H PRN PRN 06/01/15 Alogliptin Benzoate [Alogliptin] 12.5 mg PO DAILY 06/13/19 Metoprolol Succinate 50 mg PO DAILY 06/13/19 metFORMIN (XR) [Glucophage Xr] 1,000 mg PO BID 06/13/19 Ticagrelor [Brilinta] 90 mg PO BID #60 tab 06/15/19 Following Prescrptions Were Given to Patient: Ticagrelor [Brilinta] 90 mg PO BID #60 tab Prescription Printed Primary Care Physician: Karthik Brennan DO [Primary Care Provider] - Please follow up with your Primary Care Physician in: in 2-3 weeks Please Follow Up With: Zakiya Mitchell MD When: as directed Disposition: Home Minutes spent on discharge:: 32 Patient Condition:: Stable Medical Necessity - Tobacco Use Smoking Status: Former smoker Meaningful Use Info Meaningful Use Diagnoses (Choose all that apply): None applicable Code Visit Inpatient E&M: 89884 Disch Hosp
--- NOTE | 2019-06-17 07:05 | CRPH1.INSTRU ---
General Education CAD and cardiac anatomy and function:: Patient communicates acknowledgment Explanation of diagnoses and procedures:: Patient communicates acknowledgment Sign/Symptoms of ND:: Patient communicates acknowledgment Antiplatelet therapy: Patient communicates acknowledgment Proper use of NTG-SL: Patient communicates acknowledgment Emergency procedures and activation of EMS: Patient communicates acknowledgment Compliance of all prescribed medications: Patient communicates acknowledgment Dyslipidemia Patient Dyslipidemia Risk Factors Are:: Total Cholesterol, Triglycerides, HDL, LDL Recommendations Include:: Lipid profile provided Dyslipidemia Response Code:: Patient communicates acknowledgment Hypertension Patient Hypertension Risk Factors Are:: No documented hx of HTN Recommendations Include:: Maintain BP <130/85, BP <130/80 if diabetic, DASH dietary guidelines Hypertension:: Patient communicates acknowledgment Heart Disease Patient Heart Disease Risk Factors Are:: Family history of heart disease < 65 years old Recommendations Include:: Educated family members of their risk, Educated family members of importance of prevention of heart disease Heart Disease Response Code:: Patient communicates acknowledgment
--- NOTE | 2019-06-17 07:09 | CRPHASE1 ---
Patient Communication PHII Cardiac Rehab Discussed with Patient:: Yes Guide to Cardiac Rehab Given to Patient:: Yes Cardiac Rehab Facility Choice List Given to Patient:: Yes Choice Program [facility] CR PHII:: Communication Given to CR, Refer to [facility] Application Developer Manager:: Zakiya Mitchell PCP:: Karthik Brennan Phase II Cardiac Rehab:: Yes Sessions:: 36 sessions - 3 days/wk, 12 weeks Risk Factors/Lifestyle Smoking Status: Former smoker Second-Hand Smoke:: Yes Hx Dyslipidemia: Yes Hx Obesity: No Weight:: 130 lb 11.746 oz ETOH: No Caffeine: Yes Substance Abuse: No Risk Factor for Sedentary Lifestyle: Moderate Risk - 2 BOTHER WHO HAVE HAD CORONARY BYPASS GRAFTS Family History: High Cholesterol, Hypertension Past Cardiac Illness: Myocardial Infarction, Previous PCI w/Stent - STENTS X 3 IN 2014 Laboratory Values: Cardiac Rehab Phase I Labs Hemoglobin A1c 7.2 % (4.2-6.3) H 06/13/19 20:47 Triglycerides 364 mg/dL (-199) H 06/13/19 18:03 Cholesterol 148 mg/dL (200) 06/13/19 18:03 LDL Cholesterol 41 mg/dL (0-130) 06/13/19 18:03 HDL Cholesterol 34 mg/dL (40-) L 06/13/19 18:03 Phase I Education Given On:: Umbarger, Nutrition, Antiplatelet medication, Smoking cessation Issues Affecting Care:: None Knowledge of Condition:: Yes Learning Preferences: Verbal, Written, Audio/Visual, Demonstration Hospital Course Presenting Symptoms:: CHEST PAIN AND SHORTNESS OF BREATH Pain Description: Burning, Pressure Hospital Course/Complications:: ADMITTED Medical/Surgical History [place]:: Yes CAD:: Yes Hypertension:: No - NOT PREVIOUSLY MENTIONED Dyslipidemia:: Yes PTCA:: Yes - 2015 AT [facility] Discharge/Home/Social Eval Discharge Disposition: Home Marital Status: Cardiac Rehabilitation Info Cardiac Rehabilitation Program Information: Cardiac Rehabilitation is important for patients like you who are recovering from a heart problem. Cardiac rehabilitation programs are recognized as integral to the continued care of the patient with coronary heart disease. The cardiac rehabilitation program is designed to optimize a patient's physical, psychological, and social functioning. Health home health care worker work in cardiac rehabilitation programs and assist you with getting the treatments you need to get stronger and healthier - like exercise, healthy eating habits, and medications. Cardiac rehabilitation has been show to help people with heart problems live longer and have better life enjoyment than people who do not go to cardiac rehabilitation. Please contact the Cardiac Rehabilitation Program at [facility] at in two weeks if you have not heard from them.
== END 2019-06-15 11:50 | disposition home or self-care (01) ==
LOC: PCU 06-14 09:33 → ICU 06-14 16:30
PROVIDERS: Specialist; Admitting Provider Student in an Organized Health Care Education/Training Program; Family Provider Preventive Medicine Occupational Medicine; PCP Preventive Medicine Occupational Medicine; Referring Provider Student in an Organized Health Care Education/Training Program; Visit Provider Internal Medicine
DX: I25.110 Atherosclerotic heart disease of native coronary artery with unstable angina pectoris (principal); I10 Essential (primary) hypertension; E78.5 Hyperlipidemia, unspecified; K21.9 Gastro-esophageal reflux disease without esophagitis; R60.0 Localized edema; E11.65 Type 2 diabetes mellitus with hyperglycemia; Z79.899 Other long term (current) drug therapy; Z95.5 Presence of coronary angioplasty implant and graft; Z79.02 Long term (current) use of antithrombotics/antiplatelets; Z79.82 Long term (current) use of aspirin; Z87.891 Personal history of nicotine dependence
CPT/HCPCS: 36415; 80048; 80053; 80061; 83036; 84484; 85025; 85027; 92920; 93005; 93306; 93458; 99152; 99218; J7030; Q9967; C1725; C1769; C1887; C1894; G0378; J1327

== ENCOUNTER 2019-09-14 11:47 | Observation (INO) | payer MEDICAID, SELFPAY ==
[2019-07-09 14:29] VITALS: BMI 24.7
[2019-09-14] VITALS (10 sets, daily range): BP systolic 119–151; BP diastolic 68–88; PULSE 74–97; RESP 11–18; TEMP 36.4–37.2; O2SAT 94–96; BMI 24.7; BMI 24.5; BMI 24.6
--- NOTE | 2019-09-14 12:12 | EKG12_ITS ---
Test Reason : CP ADMISSION Blood Pressure : / mmHG Vent. Rate : 083 BPM Atrial Rate : 083 BPM P-R Int : 162 ms QRS Dur : 102 ms QT Int : 378 ms P-R-T Axes : 056 -39 040 degrees QTc Int : 444 ms Normal sinus rhythm Left axis deviation Abnormal ECG Confirmed by JELANI PRINCE, JESUS ([id number]), editor farm journal VIC HERRON ([id number]) on 09/19/2019 11:47:14 AM Referred By: Benjamin Graff Confirmed By:JESUS PALOMARES MD
--- NOTE | 2019-09-14 12:12 | RAD_ITS ---
STUDY: X-RAY CHEST REASON FOR EXAM: Male, 59 years old. left anterior stabbing chest pain TECHNIQUE: AP COMPARISON: 06/07/2015 FINDINGS: EKG leads project over the chest. Granuloma in the right lung base is stable. No airspace consolidation. There is no demonstrated pleural abnormality. Normal size heart. There are calcified mediastinal lymph nodes. Normal visualized pulmonary arteries. Normal visualized aortic arch and descending thoracic aorta. No acute bony process. There is no demonstrated abnormality of the visualized soft tissue structures of the upper abdomen. RAD/Chest 1 View (Portable) IMPRESSION: Stable, nonacute portable x-ray examination of the chest. Electronically Signed: Ignacio Fraire MD ([place]) at 12:38 EST , Service support ,
--- NOTE | 2019-09-14 12:13 | ED.VIS.GEN ---
History of Present Illness Chief Complaint: Chest Pain Informant: Patient Onset: Weeks Context: Onset with activity Timing: Intermittent Quality: Chest burning with dyspnea and nausea Location: Anterior mid chest Current Severity: - - None Maximum Severity: Moderate Worsened by: With exertion Relieved by: 3 to 5 minutes after patient sits down Associated Symptoms: Dyspnea and nausea Narrative: Patient is a 59-year-old male with history of coronary disease, diabetes, hypertension, hypercholesterolemia and former smoker who presents with exertional chest burning with dyspnea and nausea. This has occurred several times per day over the past week. He has not taken nitro because the pain resolves after he sits/rests. He has not contacted his slip mixer, Dr. Ayo Chang. He denies fever, chills night sweats. He denies orthopnea or PND. He denies leg pain, swelling discoloration. He denies history of reflux, hiatal hernia and denies hematemesis, melena medication. Prior similar symptoms: Yes - Exertional angina Recent Illness/Hospitalization: No - Past Medical History (1) AAA (abdominal aortic aneurysm) Status: Chronic (2) Atherosclerosis of coronary artery of [place] heart without angina pectoris Status: Chronic Comment: POBA of ISR of RCA 06/14/19; 3.5 x 30 mm Integrity Rx BMS to dRCA, 3.5 x 30 mm Integrity Rx BMS and 3.5 x 26 mm Integrity Rx BMS to mRCA 01/15/14 (3) Essential hypertension Status: Chronic (4) GERD (gastroesophageal reflux disease) Status: Chronic (5) History of coronary artery stent placement Status: Chronic Comment: 3.5 x 30 mm Integrity Rx BMS to dRCA, 3.5 x 30 mm Integrity Rx BMS and 3.5 x 26 mm Integrity Rx BMS to mRCA 01/15/14 (6) Hyperlipidemia Status: Chronic (7) Ischemic cardiomyopathy Status: Chronic (8) Nicotine dependence Status: Chronic Past Medical History - Allergies and Home Meds Allergies/Adverse Reactions: Allergies No Known Allergies Allergy (Verified 09/14/19 11:56) Primary Care Physician: Karthik Brennan DO [Primary Care Provider] - Prior records reviewed: Yes Surgical History: - - He had his right index finger amputated in an accident at the [facility]. stents x 3 Lives: Alone Smoking Status: Former smoker Alcohol: None Drugs: None - Family History Maternal Family History: Family History (Last Reviewed 07/09/19 @ 15:04 by Zakiya Mitchell MD) Mother CAD (coronary artery disease) Brother Myocardial infarction CAD (coronary artery disease) Kidney disease Presence of implantable cardioverter-defibrillator (ICD) Brother CAD (coronary artery disease) Brother CAD (coronary artery disease) Family History: Reports: No pertinent history Paternal Family History: Family History (Last Reviewed 07/09/19 @ 15:04 by Zakiya Mitchell MD) Mother CAD (coronary artery disease) Brother Myocardial infarction CAD (coronary artery disease) Kidney disease Presence of implantable cardioverter-defibrillator (ICD) Brother CAD (coronary artery disease) Brother CAD (coronary artery disease) Family History: Reports: Cancer - His father of lung cancer at a young age., No pertinent history Sibling Family History: Family History (Last Reviewed 07/09/19 @ 15:04 by Zakiya Mitchell MD) Mother CAD (coronary artery disease) Brother Myocardial infarction CAD (coronary artery disease) Kidney disease Presence of implantable cardioverter-defibrillator (ICD) Brother CAD (coronary artery disease) Brother CAD (coronary artery disease) Family History: Reports: Heart Disease - He has 2 brothers who have had coronary artery bypass grafting and another brother who has had stents. Review of Systems General: Denies: Chills, Fever, Malaise Eyes: Denies: Visual changes - bilaterally, Blurred Vision - bilaterally ENT: Denies: Rhinorrhea, Sore throat Cardiovascular: Reports: Chest pain. Denies: Palpitations, Heart racing Respiratory: Reports: Dyspnea on exertion. Denies: Dyspnea, Cough, Sputum, Orthopnea Gastrointestinal: Denies: Abdominal pain, Nausea, Vomiting, Diarrhea, Constipation, Melena, Hematochezia, -, - Genitourinary: Denies: Dysuria, Hematuria, Frequency Musculoskeletal: Denies: Myalgias, Arthralgias, Neck pain, Back pain, Swelling, Extremity Pain, -, - Neurological: Denies: Headache, Weakness, Numbness Hematologic: Denies: Easy bruising, Easy bleeding Physical Exam Vital Signs/Narrative: Vital Signs Temp Pulse Resp BP Pulse Ox 09/14/19 11:50 98.9 F 97 18 139/77 H 94 Inital Vital Signs reviewed: Yes General: Well nourished, Well developed, No Acute Distress Head: Normocephalic, Atraumatic Eyes: Perrl, EOMI. Negative for: Pale conjunctiva, Scleral icterus ENT: Moist mucous membranes, No rhinorrhea Neck: Supple, Nontender Cardiovascular: Regular rate, Regular rhythm, No murmurs, Normal S1, Normal S2 Respiratory: No distress, CTA bilaterally, Chest nontender Abdomen: Soft, Nontender, Nondistended, Normal bowel sounds Back: Nontender, Normal Inspection Extremities: Nontender, No edema. Negative for: Calf Tenderness Skin: Normal color, No rash Neurological: Alert, Oriented x3, Cranial nerves II-XII grossly intact, Normal Strength, Normal Sensation Psychological: Normal affect, Normal Mood Diagnostic/Tx/Re-eval Chest X-Ray - ED: 1 View, Read by ED Physician, Normal, Heart, Mediastinum, Bony Structures, No Acute Disease, Chronic Changes, - - X-ray interpreted by me at 1223. There is discoid atelectasis left lower lobe. 09/14/19 12:12 Chest 1 View (Portable) [RAD] Stat Impressions Chest X-Ray 09/14/19 12:12 IMPRESSION: Stable, nonacute portable x-ray examination of the chest. Electronically Signed: Ignacio Fraire MD ([place]) at 12:38 EST , Service support , 09/14/19 12:12 Chest 1 View (Portable) [RAD] Stat Laboratory Results 09/14/19 09/14/19 12:00 12:00 WBC 8.1 RBC 4.54 L Hgb 13.4 Hct 40.8 MCV 89.9 MCH 29.5 MCHC 32.8 RDW Std Deviation 38.1 RDW Coeff of Mendez 11.7 Plt Count 259 MPV 8.5 Immature Gran % (Auto) 0.500 Neut % (Auto) 57.6 Lymph % (Auto) 31.3 [place] % (Auto) 7.1 Eos % (Auto) 2.5 Baso % (Auto) 1.0 Absolute Neuts (auto) 4.7 Absolute Lymphs (auto) 2.54 Nucleated RBC % 0 Sodium 140 Potassium 4.1 Chloride 106 Carbon Dioxide 26.0 Anion Gap 8 BUN 16 Creatinine 1.23 Estim Creat Clear Calc 51.17 Est GFR (MDRD) Af Amer 78 Est GFR (MDRD) Non-Af 64 BUN/Creatinine Ratio 13.0 Glucose 120 H Calcium 9.3 Troponin I < 0.015 Laboratory results are unremarkable. - Medical Decision Making Patient presents with exertional angina and dyspnea. Symptoms resolved with rest. Per emmy criteria patient has classic angina. EKG was obtained to evaluate for acute ischemia. Troponin to rule out ME. Appropriate blood work was obtained to assess renal function, H&H. He did take aspirin this morning. Nitropaste was ordered. Will discuss case with Dr. Saldivar who is on-call for cardiology. Since case was discussed Dr. Saldivar. He requested Plavix if patient is not on Plavix and agreed with Lovenox. Patient is on Plavix. Plan is cardiac catheterization ED Disposition - Plan for ED Patient: Disposition: Home or Assisted Living Diagnosis: Exertional chest pain, Essential hypertension, Hyperlipidemia, Ischemic cardiomyopathy Referrals: Karthik Brennan DO [Primary Care Provider] -
[2019-09-14 12:24] LABS: Absolute Lymphocyte Count 2.54 X10^3/uL (0.83-4.51); Absolute Neutrophil Count 4.7 X10^3/uL (2.0-7.7); Basophil# 0.08 X10^3/uL; Eosinophils% 2.5 % (0-5); Hematocrit 40.8 % (40-54); Hemoglobin 13.4 g/dL (13.0-16.5); Lymphocyte # 2.54 X10^3/ul (4.0); Lymphocyte % 31.3 % (19-41); Mean Corp Hgb Conc 32.8 g/dL (32-36); Mean Corpuscular Hgb 29.5 pg (27.0-32.0); Mean Corpuscular Volume 89.9 fL (80-94); Mean Platelet Vol. 8.5 fl (6.2-12.0); Monocyte# 0.58 X10^3/uL; Monocyte% 7.1 % (0-10); NRBC Flagged by Analyzer 0 % (0-5); Neutrophil # 4.68 X10^3/uL (2.7-7.7); Neutrophil % 57.6 % (47-70); Platelet Count 259 K/mm3 (150-450); RBC Distribution Width CV 11.7 % (11.6-14.6); RBC Distribution Width SD 38.1 fl (35.1-43.9); Red Blood Count 4.54 M/mm3 (4.6-6.2); White Blood Count 8.1 K/mm3 (4.4-11.0)
[2019-09-14] MEDS: Nitroglycerin Oint 1 INCH PACKET TRANSDERM. (12:24)
[2019-09-14 12:43] LABS: Anion Gap 8 (5-15); BUN 16 mg/dL (7-18); Calcium,Total 9.3 mg/dL (8.5-10.1); Chloride 106 mmol/L (98-107); Creatinine, Serum 1.23 mg/dL (0.70-1.30); EST Glomerular Filtration Rate 64 mL/min (>60); Est Glom Filt Rate - Afr Amer 78 mL/min (>60); Estimated Creatinine Clearance 51.17 ml/min; Glucose 120 mg/dL (74-106); Potassium 4.1 mmol/L (3.5-5.1); Sodium Level 140 mmol/L (136-145)
--- NOTE | 2019-09-14 13:05 | NURSING ---
128 OBS VISHNUELETSROSA EXERTIONAL CP, ANGINA
--- NOTE | 2019-09-14 14:05 | ECHOCS_ITS ---
Reason For Study: Chest Pain Procedure This was a 2D Doppler, Color Flow transthoracic echocardiogram. Contrast injection was performed. Exam performed in department. Left Ventricle Normal size and thickness. The estimated ejection fraction is 35-40 %. Stage 1 diastolic dysfunction. Infero-Basal: Hypokinetic. Posterior-Basal: Hypokinetic. Right Ventricle Normal size and thickness. Normal systolic function. Atria Normal left atrium. Normal right atrium. Normal atrial septum. Mitral Valve Equivocal mitral valve prolapse. Trivial mitral valve insufficiency. Tricuspid Valve Normal tricuspid valve. Unable to estimate RV systolic pressure due to insufficient tricuspid regurgitant envelope. Aortic Valve Trisinus/trileaflet aortic valve. Pulmonic Valve Normal pulmonic valve. Trivial pulmonic valve insufficiency. Great Vessels Normal aortic root. Normal arch. Normal inferior vena cava. Inferior vena cava collapse with sniff. Pericardium/Pleural No pericardial effusion. Medication Diluted definity 3ml given slow IV push to enhance endocardial definition. MMode/2D Measurements & Calculations LVIDd: 4.0 cm IVSd: 0.88 cm Ao root diam: 2.7 cm LVIDs: 3.3 cm LVPWd: 0.98 cm RVDd: 2.7 cm FS: 18.3 % LAV(MOD-bp): 21.4 ml LVAd ap4: 27.2 cm2 SV(MOD-sp4): 37.4 ml LAV(MOD-bp) Indexed: 13.3 ml/m2 EDV(MOD-sp4): 81.9 ml LAV(MOD-sp2): 26.1 ml EDV(sp4-el): 85.4 ml LAV(MOD-sp4): 16.0 ml LVAs ap4: 18.7 cm2 ESV(MOD-sp4): 44.5 ml ESV(sp4-el): 45.6 ml EF(MOD-sp4): 45.7 % EF(sp4-el): 46.5 % SV(sp4-el): 39.7 ml LA A4 area: 8.9 cm2 LA dimension(2D): 2.9 cm RA A4 area: 7.9 cm2 Doppler Measurements & Calculations MV E max momo: 42.7 cm/sec Lat Peak E' Momo: 7.8 cm/sec Med Peak E' Momo: 5.0 cm/sec MV A max momo: 53.6 cm/sec E/E' lat: 5.5 E/E' med: 8.6 MV E/A: 0.80 Ao V2 max: 78.9 cm/sec LV V1 max: 60.4 cm/sec PA V2 max: 107.9 cm/sec Ao max P.5 mmHg LV V1 max P.5 mmHg Ao V2 mean: 57.4 cm/sec Ao mean P.4 mmHg Ao V2 VTI: 15.2 cm Interpretation Summary The estimated ejection fraction is 35-40 %. Stage 1 diastolic dysfunction. Infero-Basal: Hypokinetic Posterior-Basal: Hypokinetic Equivocal mitral valve prolapse. Trivial mitral valve insufficiency. Unable to estimate RV systolic pressure due to insufficient tricuspid regurgitant envelope. Compared to echo result dated 06/14/2019, his LV function has decreased from 45 to 50% to 35 to 40% with evidence of inferior and posterior hypokinesis. Ordering Physician: Benjamin Graff Referring Physician: Karthik Brennan Performed By: Breonna Abrams RDCS, RVT
--- NOTE | 2019-09-14 14:06 | PCM.HP.STD ---
Problem List (1) Exertional chest pain Status: Acute History of Present Illness Date of Admission: 09/14/19 Chief Complaint: Chest pain The patient is a 59 year old M who was seen in the emerge at [facility] with a chief complaint of chest pain-he complains of 2 different types of chest pain, he states he has chest pain in the left upper chest area that lasts 5 to 10 seconds at a time it is not brought on by anything in particular but it happened when he was grilling today. Patient also complains of a second type of chest discomfort which he describes as burning in nature and is in the middle of his chest, it is brought out with activity such as walking, this is been going on for approximately the last 2 weeks. He denies any radiation of the discomfort in his chest from either area into the neck, back, or arms. Patient denies any nausea, diaphoresis, or vomiting. Patient was admitted last in May of this year and underwent a cardiac catheterization with balloon angioplasty. Lab obtained today showed a normal troponin, patient's chemistry panel was unremarkable, his CBC was unremarkable. Patient's chest x-ray showed no acute disease, EKG showed a normal sinus rhythm without evidence of ischemic changes. I talked with Dr. Saldivar who was covering for cardiology, he reviewed the patient's recent cardiac catheterization in May and recommend the patient be admitted to the hospital to undergo a stress test on 09/16/2019-if this is positive for reversible ischemia, he recommended the patient undergo a repeat cardiac catheterization. This was explained to the patient and he is agreed to come into the hospital. Past Medical History Past Medical History (Chronic Problems): Chronic Problems (Last Reviewed 07/09/19 @ 15:04 by Zakiya Mitchell MD) Ischemic cardiomyopathy (Chronic) AAA (abdominal aortic aneurysm) (Chronic) History of coronary artery stent placement (Chronic) 3.5 x 30 mm Integrity Rx BMS to dRCA, 3.5 x 30 mm Integrity Rx BMS and 3.5 x 26 mm Integrity Rx BMS to mRCA 01/15/14 Hyperlipidemia (Chronic) Atherosclerosis of coronary artery of [place] heart without angina pectoris (Chronic) POBA of ISR of RCA 06/14/19; 3.5 x 30 mm Integrity Rx BMS to dRCA, 3.5 x 30 mm Integrity Rx BMS and 3.5 x 26 mm Integrity Rx BMS to mRCA 01/15/14 Essential hypertension (Chronic) GERD (gastroesophageal reflux disease) (Chronic) Nicotine dependence (Chronic) Medical History: Medical History (Last Reviewed 07/09/19 @ 15:04 by Zakiya Mitchell MD) Ischemic cardiomyopathy (Chronic) I25.5 AAA (abdominal aortic aneurysm) (Chronic) I71.4 Hyperlipidemia (Chronic) E78.5 Atherosclerosis of coronary artery of [place] heart without angina pectoris (Chronic) I25.10 POBA of ISR of RCA 06/14/19; 3.5 x 30 mm Integrity Rx BMS to dRCA, 3.5 x 30 mm Integrity Rx BMS and 3.5 x 26 mm Integrity Rx BMS to mRCA 01/15/14 Essential hypertension (Chronic) I10 GERD (gastroesophageal reflux disease) (Chronic) K21.9 Chest pain (Resolved) R07.9 Palpitations (Resolved) R00.2 Nicotine dependence (Chronic) F17.200 Peripheral vascular disease I73.9 Type 2 diabetes mellitus without complication E11.9 Hyperglycemia (Inactive) R73.9 Allergies No Known Allergies Allergy (Verified 09/14/19 11:56) Home Medications: Ambulatory Orders Medication Instructions Recorded Aspirin [Aspirin, Baby] 81 mg PO DAILY@0800 01/13/14 Simvastatin [Zocor] 40 mg PO QHS 10/27/14 Omeprazole [Prilosec] 20 mg PO DAILY 06/01/15 Alogliptin Benzoate [Alogliptin] 12.5 mg PO DAILY 06/13/19 Metoprolol Succinate 50 mg PO DAILY 06/13/19 clopidogrel 75 mg tablet 75 mg PO DAILY #90 tab 06/16/19 lisinopril 5 mg tablet 5 mg PO DAILY 07/09/19 metformin 500 mg tablet,extended 1,000 mg PO DAILY tab 07/09/19 release 24 hr Diclofenac [Voltaren] 50 mg PO DAILY 09/14/19 Surgical History: Surgical History (Last Reviewed 07/09/19 @ 15:04 by Zakiya Mitchell MD) History of coronary artery stent placement (Chronic) Z95.5 3.5 x 30 mm Integrity Rx BMS to dRCA, 3.5 x 30 mm Integrity Rx BMS and 3.5 x 26 mm Integrity Rx BMS to mRCA 01/15/14 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 stents x 3 Psychiatric History: No pertinent psych hx Lives: Alone Smoking Status: Former smoker Tobacco Use: Non-smoker Alcohol: None Drugs: None - *Family History Maternal Family History: Family History (Last Reviewed 07/09/19 @ 15:04 by Zakiya Mitchell MD) Mother CAD (coronary artery disease) Brother Myocardial infarction CAD (coronary artery disease) Kidney disease Presence of implantable cardioverter-defibrillator (ICD) Brother CAD (coronary artery disease) Brother CAD (coronary artery disease) History Items: No pertinent history Paternal Family History: Family History (Last Reviewed 07/09/19 @ 15:04 by Zakiya Mitchell MD) Mother CAD (coronary artery disease) Brother Myocardial infarction CAD (coronary artery disease) Kidney disease Presence of implantable cardioverter-defibrillator (ICD) Brother CAD (coronary artery disease) Brother CAD (coronary artery disease) History Items: Cancer - His father of lung cancer at a young age., No pertinent history Sibling Family History: Family History (Last Reviewed 07/09/19 @ 15:04 by Zakiya Mitchell MD) Mother CAD (coronary artery disease) Brother Myocardial infarction CAD (coronary artery disease) Kidney disease Presence of implantable cardioverter-defibrillator (ICD) Brother CAD (coronary artery disease) Brother CAD (coronary artery disease) History Items: Heart Disease - He has 2 brothers who have had coronary artery bypass grafting and another brother who has had stents. Review of Systems Constitutional: Denies: Anorexia, Chills, Fever, Night Sweats, Malaise, Weakness, Weight Change, Fatigue Eyes: Denies: Cataracts, Conjunctivae Inflammation, Double vision, Drainage, Redness, Vision Change HEENT: Denies: Difficulty Swallowing, Dysphasia, Ear Pain, Eye Pain, Hearing Changes, Nasal bleeding, Nasal Congestion, Post Nasal Drip Cardiovascular: Reports: Chest Pain. Denies: Claudication, Chest Pressure, Chest Tightness, Edema, Heaviness, Light Headedness, Orthopnea, Palpitations, Paroxysmal Noc. Dyspnea, Syncope Respiratory: Denies: Cough, Hemoptysis, Pleuritic Pain, Shortness of Breath, Shortness of breath at rest, Shortness of breath upon exertion, Sputum production, Wheezing Gastrointestinal: Denies: Abdominal Pain, Constipation, Diarrhea, Hematemesis, Hematochezia, Nausea, Melena, Vomiting Genitourinary: Denies: Dysuria, Frequency, Hematuria, Hesitancy, Nocturia, Retention, Urgency Musculoskeletal: Denies: Foot Pain, Hand Pain, Joint Pain, Joint stiffness, Joint swelling, Joint Tenderness, Leg Pain Skin: Denies: Dryness, Jaundice, Pruritis, Rash Neurological: Denies: Blurred vision, Double vision, Change in Speech, Slurred speech, Difficulty swallowing, Focal weakness, Headaches, Numbness, Tingling Psychiatric: Denies: Anxiety, Depression, Homicidal Ideations, Suicidal Ideations Endocrine: Denies: Change in Body Habitus, Heat/ Cold Intolerance, Polydipsia, Polyuria Hematologic/ Lymphatic: Denies: Adenopathy, Anemia, Easy Bruising, Easy Bleeding, Petechiae, Purpura VTE Information - Inpt Only VTE Present on Admission: No VTE Mechan Device Prophylaxis: SCD's VTE Pharm Prophylaxis ordered?: No Reason prophylaxis not ordered:: Refusal of Tx by Patient Patient Problems: Active and Suspected Problems (Last Reviewed 07/09/19 @ 15:04 by Zakiya Mitchell MD) Exertional chest pain (Acute) - Physical Exam Vitals/I&O's: Vital Signs Temp Pulse Resp BP Pulse Ox 98.9 F 90 11 L 151/88 H 95 09/14/19 11:50 09/14/19 13:08 09/14/19 13:08 09/14/19 13:08 09/14/19 13:08 Oxygen Delivery Method Room Air Weight: 61.3 kg Body Mass Index (BMI) 24.7 Finger Stick Blood Glucose 116 General: Alert, Oriented x3, Cooperative, No apparent distress, Well developed, Well nourished HEENT: Atraumatic, PERRLA, EOMI, Normocephalic Oral: Moist Mucosa Neck: Supple, No JVD, Negative Carotid Bruits, No Nuchal Rigidity, Trachea Midline, Thyroid Normal Size and Texture Lungs: Clear to auscultation, Normal air movement, No rhonchi, No wheeze, No rales, Diminished, Rales Cardiovascular: Regular rate, Regular Rhythm, Normal S1, Normal S2, No murmurs, No Ectopic Activity, PMI Normal, No rub noted, No Gallop Abdomen: Bowel Sounds Present, Soft, Non Tender, Non-Distended Extremities: No clubbing, No cyanosis, No edema, Capillary Refill Less than 3 Seconds Skin: No rashes, No breakdown Neurological: Cranial nerves II-XII grossly intact, Neuro grossly intact, Sensory exam intact to light touch and pain, Coordination normal Psych/Mental Status: Normal Affect, Appropriate, Alert and oriented to time, place, person, mood and affect Laboratory Results 09/14/19 12:00: WBC 8.1, RBC 4.54 L, Hgb 13.4, Hct 40.8, MCV 89.9, MCH 29.5, MCHC 32.8, RDW Std Deviation 38.1, RDW Coeff of Mendez 11.7, Plt Count 259, MPV 8.5, Immature Gran % (Auto) 0.500, Neut % (Auto) 57.6, Lymph % (Auto) 31.3, [place] % (Auto) 7.1, Eos % (Auto) 2.5, Baso % (Auto) 1.0, Absolute Neuts (auto) 4.7, Absolute Lymphs (auto) 2.54, Nucleated RBC % 0 09/14/19 12:00: Sodium 140, Potassium 4.1, Chloride 106, Carbon Dioxide 26.0, Anion Gap 8, BUN 16, Creatinine 1.23, Estim Creat Clear Calc 51.17, Est GFR (MDRD) Af Amer 78, Est GFR (MDRD) Non-Af 64, BUN/Creatinine Ratio 13.0, Glucose 120 H, Calcium 9.3, Troponin I < 0.015 Current Medications Acetaminophen (Tylenol) 650 mg PO Q6H PRN PRN PRN Reason: Pain Score 1-3/Temp > 100.7 F Aspirin (Aspirin, Baby) 81 mg PO DAILY@0800 [facility] Clopidogrel Bisulfate (Plavix) 75 mg PO DAILY [facility] Lisinopril (Zestril) 5 mg PO DAILY [facility] Metformin HCl (Glucophage Xr) 1,000 mg PO DAILY [facility] Metoprolol Succinate (Toprol Xl (Beta Racheal)) 50 mg PO DAILY [facility] Non-Formulary Medication (Alogliptin Benzoate [Alogliptin]) 12.5 mg PO DAILY [facility] Non-Formulary Medication (Omeprazole) 20 mg PO DAILY [facility] Non-Formulary Medication (Simvastatin) 40 mg PO QHS [facility] Assessment/Plan All Active Problems (Last Reviewed 07/09/19 @ 15:04 by Zakiya Mitchell MD) Exertional chest pain (Acute) Chest pain (Resolved) Palpitations (Resolved) #1 Chest pain in a patient with known coronary artery disease-patient will be placed in observation status on PCU, enzymes will be cycled, if the enzymes remain negative he will undergo an echo stress test on 09/16/2019. If this is abnormal, patient will need to undergo cardiac catheterization. Patient is not currently having any chest pain, he has refused Lovenox injections in the emergency room. #2 hyperlipidemia #3 type 2 diabetes-patient is on a small dose of an oral medication, I do not believe that he needs fingerstick blood sugars during his hospital stay. #4 essential hypertension 5 ischemic cardiomyopathy Code Visit OBSV E&M: 41026 Initial observation care L3
--- NOTE | 2019-09-14 14:20 | EKG12_ITS ---
Test Reason : CP Blood Pressure : / mmHG Vent. Rate : 097 BPM Atrial Rate : 097 BPM P-R Int : 156 ms QRS Dur : 106 ms QT Int : 350 ms P-R-T Axes : 062 -43 059 degrees QTc Int : 444 ms Normal sinus rhythm Left axis deviation Abnormal ECG Confirmed by DANIEL PRINCE, PJ ([id number]), mapping editor EARL LEIVA ([id number]) on 09/17/2019 9:58:35 AM Referred By: Benjamin Graff Confirmed By:PJ SANCHEZ MD
[2019-09-14] MEDS: Atorvastatin Calcium 20 MG Tablet PO (21:18)
[2019-09-15] VITALS (11 sets, daily range): BP systolic 97–132; BP diastolic 55–87; PULSE 67–94; RESP 14–20; TEMP 36.3–37; O2SAT 95–97
[2019-09-15] MEDS: Pantoprazole Sodium 20 MG Tablet PO (08:30)
[2019-09-15] MEDS: LINAGLIPTIN 5 MG TABLET PO (08:30)
[2019-09-15] MEDS: Aspirin 81 MG TAB.CHEW PO (08:30)
[2019-09-15] MEDS: Lisinopril 5 MG Tablet PO (08:30)
[2019-09-15] MEDS: Metoprolol(XL)Succ 50 MG Tablet PO (08:30)
[2019-09-15] MEDS: metFORMIN (XR) 500 MG Tablet 1000 MG PO (08:30)
[2019-09-15] MEDS: Clopidogrel Bisulfate 75 MG Tablet PO (08:30)
[2019-09-15 11:25] LABS: Bedside Glucose 161 mg/dL (70-110)
--- NOTE | 2019-09-15 12:08 | CON.PCM_ITS ---
Problem List (1) Exertional chest pain Status: Acute (2) AAA (abdominal aortic aneurysm) Status: Chronic Qualifiers: Presence of rupture: without rupture Qualified Code(s): I71.4 - Abdominal aortic aneurysm, without rupture (3) History of coronary artery stent placement Status: Chronic Comment: 3.5 x 30 mm Integrity Rx BMS to dRCA, 3.5 x 30 mm Integrity Rx BMS and 3.5 x 26 mm Integrity Rx BMS to mRCA 01/15/14 (4) Hyperlipidemia Status: Chronic Qualifiers: Hyperlipidemia type: unspecified Qualified Code(s): E78.5 - Hyperlipidemia, unspecified (5) Atherosclerosis of coronary artery of [place] heart without angina pectoris Status: Chronic Qualifiers: Coronary Disease-Associated Artery/Lesion type: [place] artery Qualified Code(s): I25.10 - Atherosclerotic heart disease of [place] coronary artery without angina pectoris Comment: POBA of ISR of RCA 06/14/19; 3.5 x 30 mm Integrity Rx BMS to dRCA, 3.5 x 30 mm Integrity Rx BMS and 3.5 x 26 mm Integrity Rx BMS to mRCA 01/15/14 (6) Essential hypertension Status: Chronic Reason for Consult Date of Consultation: 09/15/19 Reason for Consultation: Chest pain, coronary artery disease, status post stenting, hypertension, diabetes, previous tobacco user History of Present Illness: The patient is a 59 year old M, former tobacco user quit about 7 years ago, patient Dr. Chang's, with a history of hypertension, hypercholesterolemia, coronary disease status post PCI x3 stents in 2011 to the RCA at [facility], who recently was admitted in May 2019 with recurrent exertional substernal chest pressure and burning. He underwent a diagnostic coronary angiogram by Dr. Chang at that time which discovered him to have significant in-stent restenosis of his RCA. Patient underwent successful balloon angioplasty only of this area with a fairly good result, but no additional stenting was performed. 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 The patient symptoms initially improved and have remained dormant up until around the last week or so when he began developing recurrent exertional substernal chest burning sensation similar to his angina in May 2019. 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 He also has some atypical nonexertional chest pain which do not appear to be related to his cardiac condition. The patient has not resumed smoking, and reports his been compliant with his medications. His initial EKG showed normal sinus rhythm, no acute changes troponins x2 have been negative. [] Past Medical History Allergies/Adverse Reactions: Allergies No Known Allergies Allergy (Verified 09/14/19 11:56) Home Medications: Ambulatory Orders Medication Instructions Recorded Aspirin [Aspirin, Baby] 81 mg PO DAILY@0800 01/13/14 Simvastatin [Zocor] 40 mg PO QHS 10/27/14 Omeprazole [Prilosec] 20 mg PO DAILY 06/01/15 Alogliptin Benzoate [Alogliptin] 12.5 mg PO DAILY 06/13/19 Metoprolol Succinate 50 mg PO DAILY 06/13/19 clopidogrel 75 mg tablet 75 mg PO DAILY #90 tab 06/16/19 lisinopril 5 mg tablet 5 mg PO DAILY 07/09/19 metformin 500 mg tablet,extended 1,000 mg PO DAILY tab 07/09/19 release 24 hr Diclofenac [Voltaren] 50 mg PO DAILY 09/14/19 Past Medical History (Chronic Problems): Chronic Problems (Last Reviewed 07/09/19 @ 15:04 by Zakiya Mitchell MD) Ischemic cardiomyopathy (Chronic) AAA (abdominal aortic aneurysm) (Chronic) History of coronary artery stent placement (Chronic) 3.5 x 30 mm Integrity Rx BMS to dRCA, 3.5 x 30 mm Integrity Rx BMS and 3.5 x 26 mm Integrity Rx BMS to mRCA 01/15/14 Hyperlipidemia (Chronic) Atherosclerosis of coronary artery of [place] heart without angina pectoris (Chronic) POBA of ISR of RCA 06/14/19; 3.5 x 30 mm Integrity Rx BMS to dRCA, 3.5 x 30 mm Integrity Rx BMS and 3.5 x 26 mm Integrity Rx BMS to mRCA 01/15/14 Essential hypertension (Chronic) GERD (gastroesophageal reflux disease) (Chronic) Nicotine dependence (Chronic) Surgical History: - - He had his right index finger amputated in an accident at the [facility]. stents x 3 Psychiatric History: No pertinent psych hx - *Family History Maternal Family History: Family History (Last Reviewed 07/09/19 @ 15:04 by Zakiya Mitchell MD) Mother CAD (coronary artery disease) Brother Myocardial infarction CAD (coronary artery disease) Kidney disease Presence of implantable cardioverter-defibrillator (ICD) Brother CAD (coronary artery disease) Brother CAD (coronary artery disease) History Items: No pertinent history Paternal Family History: Family History (Last Reviewed 07/09/19 @ 15:04 by Zakiya Mitchell MD) Mother CAD (coronary artery disease) Brother Myocardial infarction CAD (coronary artery disease) Kidney disease Presence of implantable cardioverter-defibrillator (ICD) Brother CAD (coronary artery disease) Brother CAD (coronary artery disease) History Items: Cancer - His father of lung cancer at a young age., No pertinent history Sibling Family History: Family History (Last Reviewed 07/09/19 @ 15:04 by Zakiya Mitchell MD) Mother CAD (coronary artery disease) Brother Myocardial infarction CAD (coronary artery disease) Kidney disease Presence of implantable cardioverter-defibrillator (ICD) Brother CAD (coronary artery disease) Brother CAD (coronary artery disease) History Items: Heart Disease - He has 2 brothers who have had coronary artery bypass grafting and another brother who has had stents. Lives: Alone Smoking Status: Former smoker Tobacco Use: Non-smoker Alcohol: None Drugs: None Review of Systems - Review of Systems General: Denies: Fever, Night Sweats, Fatigue Cardiovascular: Reports: Chest Discomfort at Rest, Chest Discomfort with Exertion, Chest Pressure. Denies: Chest Discomfort, Shortness of Breath, Orthopnea, PND, Peripheral Edema, Palpitations, Lightheadedness, Dizziness, Near Syncope, Syncope Respiratory: Denies: Cough, Sputum Production, Hemoptysis Gastrointestinal: Denies: Hematemesis, Hematochezia, Melena Genitourinary: Denies: Dysuria, Hematuria Skin: Denies: Rash Subjectve: Patient resting comfortably, no acute distress. Objective: Vital Signs Temp Pulse Resp BP Pulse Ox 98.3 F 75 14 129/74 H 97 09/15/19 08:23 09/15/19 08:30 09/15/19 08:23 09/15/19 08:23 09/15/19 08:23 Oxygen Delivery Method Room Air Weight: 134 lb 4.184 oz Body Mass Index (BMI) 24.5 Finger Stick Blood Glucose 116 Intake and Output for Last 24 Hours 09/13/19 09/14/19 09/15/19 23:59 23:59 23:59 Intake Total 400 / 400 Balance 400 / 400 General: Awake, Alert, Oriented x 3 HEENT: PERRL, EOMI, Sclera Non Icteric Neck: Supple, Good ROM, No Lymph Node Enlargement Lungs: Clear to auscultation Cardiovascular: Regular Rhythm, Normal S1, Normal S2, No Murmurs, No Rubs, No Gallops Vascular: No Carotid Bruits, Normal Femoral Pulses, Normal Radial Pulses, Normal Dorsalis Pedal Pulse, Normal Posterior Tibial Pulses Abdomen: Bowel Sounds Present, Soft, Non Tender, No HSM, No Organomegaly Extremities: No Cyanosis, No Clubbing, No edema Neurological: No Focal Motor or Sensory Deficit 09/14/19 12:00: WBC 8.1, RBC 4.54 L, Hgb 13.4, Hct 40.8, MCV 89.9, MCH 29.5, MCHC 32.8, Plt Count 259, MPV 8.5, Immature Gran % (Auto) 0.500, Neut % (Auto) 57.6, Lymph % (Auto) 31.3, [place] % (Auto) 7.1, Eos % (Auto) 2.5, Baso % (Auto) 1.0, Absolute Neuts (auto) 4.7, Nucleated RBC % 0 09/14/19 12:00: Sodium 140, Potassium 4.1, Chloride 106, Carbon Dioxide 26.0, Anion Gap 8, BUN 16, Creatinine 1.23, Est GFR (MDRD) Af Amer 78, Est GFR (MDRD) Non-Af 64, BUN/Creatinine Ratio 13.0, Glucose 120 H, Calcium 9.3, Troponin I < 0.015 09/14/19 15:18: Troponin I < 0.015 09/14/19 17:59: Troponin I < 0.015 Rhythm: EKG: As above ECHO: Pending Stress Test: Pending Cardiac Cath: From 05/2019 reviewed. PCI: CT Surgery: Holter monitor: EPS: PPM: CXR: Chest CT Scan: Assessment/Plan 1. Coronary artery disease: Patient returns with recurrent exertional substernal chest burning similar to his anginal symptoms prior to his balloon angioplasty of his RCA in-stent restenosis in May 2019. At that time no stenting was performed given the result and his symptoms pretty much abated after that time. 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 He has not had a recent stress test other than in 2016. Given the patient's multivessel coronary disease, he may have restenosis of his previously ballooned in-stent restenosis of his RCA. 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 To better adjudicate localize possible areas of ischemia, I recommended he undergo a treadmill echocardiogram to assess his anterior and inferior lateral kenney to determine if he requires additional intervention or perhaps multivessel bypass surgery at the time of his repeat catheterization. Regardless of the stress test however I would recommend he undergo a repeat catheterization to assess whether he has recoil in-stent restenosis in his previously stented RCA from his balloon angioplasty only in May 2019. If the patient has no evidence of anterior or inferolateral ischemia on stress testing, I would not pursue intervention of these 2 vessels. If however under catheterization the patient has no evidence of in-stent restenosis of his RCA, I recommend considering FloWire evaluation of his anomalous left circumflex and/or his mid LAD. Either way the patient will continue his baby aspirin, Plavix which he has been compliant with. Would recommend continuing his metoprolol, lisinopril, subcu Lovenox for now, nitroglycerin paste as well. 2. Hyperlipidemia: Continue Pitt[place] therapy. Repeat lipids are pending. 3. Thank you very much for the opportunity to participate in the cardiac care of your patient. Patient will be followed up with Dr. Chang. Code Visit Inpatient E&M: 53591 Init Hosp L2
--- NOTE | 2019-09-15 16:13 | PN_ITS ---
Patient Problems: Active and Suspected Problems (Last Reviewed 07/09/19 @ 15:04 by Zakiya Mitchell MD) Exertional chest pain (Acute) Subjective: Patient was seen and examined today, he states he is intermittently getting twinges of chest pain but he denies any shortness of breath. Patient's cardiac enzymes were unremarkable. - Physical Exam Vitals/I&O's: Vital Signs Temp Pulse Resp BP Pulse Ox 97.4 F L 69 14 126/62 H 95 09/15/19 14:30 09/15/19 14:30 09/15/19 14:30 09/15/19 14:30 09/15/19 14:30 Oxygen Delivery Method Room Air Weight: 60.9 kg Body Mass Index (BMI) 24.5 Finger Stick Blood Glucose 116 Intake and Output for Last 24 Hours 09/13/19 09/14/19 09/15/19 23:59 23:59 23:59 Intake Total 400 / 400 Balance 400 / 400 General: Alert, Oriented x3, Cooperative, No apparent distress, Well developed HEENT: Atraumatic, PERRLA, EOMI, Normocephalic Oral: Moist Mucosa Neck: Supple, Trachea Midline Lungs: Clear to auscultation, Normal air movement, No rhonchi, No wheeze, No rales Cardiovascular: Regular rate, Regular Rhythm, Normal S1, Normal S2, No murmurs, PMI Normal, No rub noted, No Gallop Abdomen: Bowel Sounds Present, Soft, Non Tender, Non-Distended Extremities: No clubbing, No cyanosis, No edema, Capillary Refill Less than 3 Seconds Skin: No rashes, No breakdown Musculoskeletal: No Tenderness to Palpation of Joints or Extremities Neurological: Cranial nerves II-XII grossly intact, Muscle tone normal, Sensory exam intact to light touch and pain Psych/Mental Status: Normal Affect, Appropriate, Alert and oriented to time, place, person, mood and affect Laboratory Results 09/14/19 17:59: Troponin I < 0.015 09/15/19 11:05: POC Glucose 161 H Current Medications Acetaminophen (Tylenol) 650 mg PO Q6H PRN PRN PRN Reason: Pain Score 1-3/Temp > 100.7 F Aspirin (Aspirin, Baby) 81 mg PO DAILY@0800 [facility] Last Admin: 09/15/19 08:30 Dose: 81 mg Documented by: Atorvastatin Calcium (Lipitor) 20 mg PO QHS [facility] Last Admin: 09/14/19 21:18 Dose: 20 mg Documented by: Clopidogrel Bisulfate (Plavix) 75 mg PO DAILY [facility] Last Admin: 09/15/19 08:30 Dose: 75 mg Documented by: Linagliptin (Tradjenta) 5 mg PO DAILY [facility] Last Admin: 09/15/19 08:30 Dose: 5 mg Documented by: Lisinopril (Zestril) 5 mg PO DAILY [facility] Last Admin: 09/15/19 08:30 Dose: 5 mg Documented by: Metformin HCl (Glucophage Xr) 1,000 mg PO DAILYCM [facility] Last Admin: 09/15/19 08:30 Dose: 1,000 mg Documented by: Metoprolol Succinate (Toprol Xl (Beta Racheal)) 50 mg PO DAILY [facility] Last Admin: 09/15/19 08:30 Dose: 50 mg Documented by: Pantoprazole Sodium (Protonix) 20 mg PO DAILY [facility] Last Admin: 09/15/19 08:30 Dose: 20 mg Documented by: Sodium Chloride () 10 - 40 ml IV UD PRN PRN Reason: SALINE FLUSH Medical Necessity - Tobacco Use Smoking Status: Former smoker Tobacco Use: Non-smoker Assessment/Plan All Active Problems (Last Reviewed 07/09/19 @ 15:04 by Zakiya Mitchell MD) Exertional chest pain (Acute) Chest pain (Resolved) Palpitations (Resolved) #1 Chest pain in a patient with known coronary artery disease-continue present care, cardiology saw the patient today, patient will have an exercise echo stress test tomorrow. #2 hyperlipidemia #3 type 2 diabetes-patient is on a small dose of an oral medication, I do not believe that he needs fingerstick blood sugars during his hospital stay. #4 essential hypertension 5 ischemic cardiomyopathy Code Visit OBSV E&M: 42751 Subsequent observation care L3
[2019-09-15] MEDS: Atorvastatin Calcium 20 MG Tablet PO (21:37)
[2019-09-15] MEDS: Zolpidem Tartrate 5 MG Tablet PO (22:06)
[2019-09-16] VITALS (8 sets, daily range): BP systolic 107–144; BP diastolic 68–78; PULSE 79–112; RESP 16–18; TEMP 36.3–36.8; O2SAT 93–96
[2019-09-16] MEDS: Aspirin 81 MG TAB.CHEW PO (05:07)
[2019-09-16] MEDS: Lisinopril 5 MG Tablet PO (05:07)
[2019-09-16] MEDS: Clopidogrel Bisulfate 75 MG Tablet PO (05:07)
--- NOTE | 2019-09-16 05:55 | EKG12_ITS ---
Test Reason : AM EKG Blood Pressure : / mmHG Vent. Rate : 085 BPM Atrial Rate : 085 BPM P-R Int : 158 ms QRS Dur : 098 ms QT Int : 362 ms P-R-T Axes : 069 -53 059 degrees QTc Int : 430 ms Normal sinus rhythm Left axis deviation Abnormal ECG Confirmed by JELANI PRINCE, JESUS ([id number]), mapping editor VIC HERRON ([id number]) on 09/19/2019 11:27:00 AM Referred By: Benjamin Graff Confirmed By:JESUS PALOMARES MD
--- NOTE | 2019-09-16 08:00 | STEWCON_ITS ---
Reason For Study: CHEST PAIN Stress Results Protocol: Tevin Protocol WITH DEFINITY Maximum Predicted HR: 163 bpm Target HR: 139 bpm % Maximum Predicted HR: 88 % DurationHeart Rate Stage (mm:ss) (bpm) BP Comment BASELINE 76 142/84 STAGE 1 3:00 123 178/88 STAGE 2 3:00 144 174/92 RECOVERY 98 130/824 CC DEFINITY USED AND LEG DISCOMFORT DURING STRESS TEST Stress Duration: 6:00 mm:ss Maximum Stress HR: 144 bpm Baseline Echocardiogram Findings The estimated ejection fraction is 35 %. Stress Echo Wall motion Data Resting WM Intermediate WM Stress WM Resting Wall Motion Wall Motion Stress Posterior-Basal: Mildly No regional wall motion hypokinetic. abnormalities noted. Infero-Basal: Mildly hypokinetic. EKG Data The baseline ECG displays normal sinus rhythm. The patient exercised according to the regular Tevin protocol for a total duration of 6:01. The maximum heart rate attained was 144 beats per minute. This was 88% of maximum predicted heart rate. The patient exercised into stage 3 of the Tevin protocol. During stress, there were no ST or T wave changes noted to suggest ischemia. No clinical angina was noted. Interpretation Summary The estimated ejection fraction is 35 %. Posterior-Basal: Mildly hypokinetic Infero-Basal: Mildly hypokinetic Normal, adequate, treadmill echocardiogram. Negative for ischemia by EKG and echocardiographic anterior. No anginal symptoms noted. Rare PVC noted. Appropriate blood pressure response to exercise. Below average exercise capacity for age. Decreased sensitivity due to baseline LV dysfunction with baseline inferior posterior hypokinesis. All other kenney appear to contract normally at peak exercise. Decrease sensitivity due to poor echo windows requiring Definity agent. Final LVEF of 55%. Patient taught procedure well. No complication. The study was technically difficult. Contrast injection was performed. Ordering Physician: Benjamin Graff Referring Physician: Benjamin Graff Performed By: Breonna Abrams, SYLWIACS, RVT
[2019-09-16] MEDS: Metoprolol(XL)Succ 50 MG Tablet PO (10:00)
[2019-09-16] MEDS: Pantoprazole Sodium 20 MG Tablet PO (10:00)
[2019-09-16] MEDS: metFORMIN (XR) 500 MG Tablet 1000 MG PO (10:04)
[2019-09-16] MEDS: LINAGLIPTIN 5 MG TABLET PO (10:04)
--- NOTE | 2019-09-16 11:39 | DCINST_ITS ---
- Discharge Diagnoses Current Active Problems: Current Active and Chronic Problems (Last Reviewed 07/09/19 @ 15:04 by Zakiya Mitchell MD) Exertional chest pain (Acute) Ischemic cardiomyopathy (Chronic) Hyperlipidemia (Chronic) Essential hypertension (Chronic) You will use the following diet at home:: Calorie/Carbohydrate Controlled (specify 1200, 1400, etc) - 1800 Your food should be the consistency of: Regular Discharge Activity: Return to Normal Activity Allergies/Adverse Reactions: Allergies No Known Allergies Allergy (Verified 09/14/19 11:56) Medications to take at Discharge Aspirin [Aspirin, Baby] 81 mg PO DAILY@0800 01/13/14 Simvastatin [Zocor] 40 mg PO QHS 10/27/14 Omeprazole [Prilosec] 20 mg PO DAILY 06/01/15 Alogliptin Benzoate [Alogliptin] 12.5 mg PO DAILY 06/13/19 Metoprolol Succinate 50 mg PO DAILY 06/13/19 clopidogrel 75 mg tablet 75 mg PO DAILY #90 tab 06/16/19 lisinopril 5 mg tablet 5 mg PO DAILY 07/09/19 metformin 500 mg tablet,extended release 24 hr 1,000 mg PO DAILY tab 07/09/19 Diclofenac [Voltaren] 50 mg PO DAILY 09/14/19 Primary Care Physician: Karthik Brennan DO [Primary Care Provider] - Please follow up with your Primary Care Physician in: in 3-5 days Test Results: Test results from this visit will be discussed in further detail at your follow- up appointment, if applicable. Proposed Discharge Date: 09/16/19
--- NOTE | 2019-09-16 11:43 | DS.PCM_ITS ---
Discharge Date and Diagnosis Date of Admission: 09/14/19 Date of Discharge: 09/16/19 - Primary Discharge Diagnosis Active and Suspected Problems (Last Reviewed 07/09/19 @ 15:04 by Zakiya Mitchell MD) Exertional chest pain (Acute) - Secondary Discharge Diagnosis Chronic Problems (Last Reviewed 07/09/19 @ 15:04 by Zakiya Mitchell MD) Ischemic cardiomyopathy (Chronic) AAA (abdominal aortic aneurysm) (Chronic) History of coronary artery stent placement (Chronic) 3.5 x 30 mm Integrity Rx BMS to dRCA, 3.5 x 30 mm Integrity Rx BMS and 3.5 x 26 mm Integrity Rx BMS to mRCA 01/15/14 Hyperlipidemia (Chronic) Atherosclerosis of coronary artery of [place] heart without angina pectoris (Chronic) POBA of ISR of RCA 06/14/19; 3.5 x 30 mm Integrity Rx BMS to dRCA, 3.5 x 30 mm Integrity Rx BMS and 3.5 x 26 mm Integrity Rx BMS to mRCA 01/15/14 Essential hypertension (Chronic) GERD (gastroesophageal reflux disease) (Chronic) Nicotine dependence (Chronic) Hospital Course and Treatment Imaging Results: 09/16/19 08:00 Stress Test Echo W/Contrast [ECHO] Routine Operations: None Summary of Care Provided: The patient is a 59 year old M known coronary artery disease admitted with chest pain 1. Chest pain patient was placed on a monitored bed did rule out LA with serial cardiac enzymes. Patient subsequently underwent a an echo stress test which is negative for stress-induced ischemia. Patient was also seen in consultation by cardiology Dr. Saldivar. Plans for patient to follow-up with Dr. Chang for outpatient left heart catheterization Hypertension ~ blood pressure controlled, home medications continued with dose adjustment as needed Dyslipidemia ~patient is on statin therapy, continued at home dose Diabetes mellitus type 2 ?Did continue patient home medications in addition to Accu-Cheks before meals and at bedtime with sliding scale coverage - Physical Exam Vitals/I&O's: Vital Signs Temp Pulse Resp BP Pulse Ox 98.3 F 112 H 16 136/70 H 93 09/16/19 07:42 09/16/19 11:13 09/16/19 07:42 09/16/19 07:42 09/16/19 07:42 Oxygen Delivery Method Room Air Weight: 60.9 kg Body Mass Index (BMI) 24.5 Finger Stick Blood Glucose 116 Intake and Output for Last 24 Hours 09/14/19 09/15/19 09/16/19 23:59 23:59 23:59 Intake Total 400 / 880 540 / 540 Output Total Balance 399 / 879 540 / 540 General: Alert HEENT: Atraumatic Neck: Supple Lungs: Clear to auscultation Cardiovascular: Regular rate Current Medications Acetaminophen (Tylenol) 650 mg PO Q6H PRN PRN PRN Reason: Pain Score 1-3/Temp > 100.7 F Aspirin (Aspirin, Baby) 81 mg PO DAILY@0800 [facility] Last Admin: 09/16/19 05:07 Dose: 81 mg Documented by: Atorvastatin Calcium (Lipitor) 20 mg PO QHS [facility] Last Admin: 09/15/19 21:37 Dose: 20 mg Documented by: Clopidogrel Bisulfate (Plavix) 75 mg PO DAILY [facility] Last Admin: 09/16/19 05:07 Dose: 75 mg Documented by: Linagliptin (Tradjenta) 5 mg PO DAILY [facility] Last Admin: 09/16/19 10:04 Dose: 5 mg Documented by: Lisinopril (Zestril) 5 mg PO DAILY [facility] Last Admin: 09/16/19 05:07 Dose: 5 mg Documented by: [facility] Last Admin: 09/16/19 10:04 Dose: 1,000 mg Documented by: Metoprolol Succinate (Toprol Xl (Beta Racheal)) 50 mg PO DAILY [facility] Last Admin: 09/16/19 10:00 Dose: 50 mg Documented by: Pantoprazole Sodium (Protonix) 20 mg PO DAILY [facility] Last Admin: 09/16/19 10:00 Dose: 20 mg Documented by: Sodium Chloride () 10 - 40 ml IV UD PRN PRN Reason: SALINE FLUSH Zolpidem Tartrate (Ambien (Generic)) 5 mg PO QHS PRN PRN PRN Reason: INSOMNIA Last Admin: 09/15/19 22:06 Dose: 5 mg Documented by: Discharge Diet: Low fat/ Low Cholesterol Discharge Activity: Return to Normal Activity Home Medications: Medications to take at Discharge Aspirin [Aspirin, Baby] 81 mg PO DAILY@0800 01/13/14 Simvastatin [Zocor] 40 mg PO QHS 10/27/14 Omeprazole [Prilosec] 20 mg PO DAILY 06/01/15 Alogliptin Benzoate [Alogliptin] 12.5 mg PO DAILY 06/13/19 Metoprolol Succinate 50 mg PO DAILY 06/13/19 clopidogrel 75 mg tablet 75 mg PO DAILY #90 tab 06/16/19 lisinopril 5 mg tablet 5 mg PO DAILY 07/09/19 metformin 500 mg tablet,extended release 24 hr 1,000 mg PO DAILY tab 07/09/19 Diclofenac [Voltaren] 50 mg PO DAILY 09/14/19 Primary Care Physician: Karthik Brennan DO [Primary Care Provider] - Please follow up with your Primary Care Physician in: in 3-5 days Disposition: Home Minutes spent on discharge:: 35 Patient Condition:: Stable Medical Necessity - Tobacco Use Smoking Status: Former smoker Tobacco Use: Non-smoker Meaningful Use Info Meaningful Use Diagnoses (Choose all that apply): None applicable Code Visit OBSV E&M: 11032 Observation care discharge
--- NOTE | 2019-09-16 11:43 | PCM.PN.HOSP ---
Patient Problems: Active and Suspected Problems (Last Reviewed 07/09/19 @ 15:04 by Zakiya Mitchell MD) Exertional chest pain (Acute) Vitals/I&O's: Vital Signs Temp Pulse Resp BP Pulse Ox 98.3 F 112 H 16 136/70 H 93 09/16/19 07:42 09/16/19 11:13 09/16/19 07:42 09/16/19 07:42 09/16/19 07:42 Oxygen Delivery Method Room Air Weight: 60.9 kg Body Mass Index (BMI) 24.5 Finger Stick Blood Glucose 116 Intake and Output for Last 24 Hours 09/14/19 09/15/19 09/16/19 23:59 23:59 23:59 Intake Total 400 / 880 540 / 540 Output Total Balance 399 / 879 540 / 540 Current Medications Acetaminophen (Tylenol) 650 mg PO Q6H PRN PRN PRN Reason: Pain Score 1-3/Temp > 100.7 F Aspirin (Aspirin, Baby) 81 mg PO DAILY@0800 [facility] Last Admin: 09/16/19 05:07 Dose: 81 mg Documented by: Atorvastatin Calcium (Lipitor) 20 mg PO QHS [facility] Last Admin: 09/15/19 21:37 Dose: 20 mg Documented by: Clopidogrel Bisulfate (Plavix) 75 mg PO DAILY [facility] Last Admin: 09/16/19 05:07 Dose: 75 mg Documented by: Linagliptin (Tradjenta) 5 mg PO DAILY [facility] Last Admin: 09/16/19 10:04 Dose: 5 mg Documented by: Lisinopril (Zestril) 5 mg PO DAILY [facility] Last Admin: 09/16/19 05:07 Dose: 5 mg Documented by: [facility] Admin: 09/16/19 10:04 Dose: 1,000 mg Documented by: Metoprolol Succinate (Toprol Xl (Beta Racheal)) 50 mg PO DAILY [facility] Last Admin: 09/16/19 10:00 Dose: 50 mg Documented by: Pantoprazole Sodium (Protonix) 20 mg PO DAILY [facility] Last Admin: 09/16/19 10:00 Dose: 20 mg Documented by: Sodium Chloride () 10 - 40 ml IV UD PRN PRN Reason: SALINE FLUSH Zolpidem Tartrate (Ambien (Generic)) 5 mg PO QHS PRN PRN PRN Reason: INSOMNIA Last Admin: 09/15/19 22:06 Dose: 5 mg Documented by: STROKE Vital Signs/Narrative: Vital Signs Pulse 09/16/19 11:13 112 H 09/16/19 10:00 79 Medical Necessity - Tobacco Use Smoking Status: Former smoker Tobacco Use: Non-smoker Assessment/Plan All Active Problems (Last Reviewed 07/09/19 @ 15:04 by Zakiya Mitchell MD) Exertional chest pain (Acute) Chest pain (Resolved) Palpitations (Resolved)
--- NOTE | 2019-09-16 12:02 | PCM.PN.CARD ---
Subjectve: Patient seen and examined, on further history the patient offers up that his chest burning sensation may have been triggered by cold weather, which she did not previously tell us before. He underwent a treadmill echocardiogram today which demonstrated no exertional chest pain, baseline inferior posterior hypokinesis which did not appreciably worsen at peak exercise, and no significant evidence of anterior or lateral hypokinesis at peak exertion. He had below average exercise capacity with a total of 6 minutes and discontinued due to hip pain. After long and thorough discussion with the patient, Dr. Chang and myself, the patient does not wish to pursue catheterization at this time and wishes to go home. I explained to the patient that his scar tissue may have returned since his angioplasty in May, and that that may be the source of his symptoms despite the fact that he did not have them on the treadmill, but again the patient wishes to go home and declines catheterization at this time. 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 His images were somewhat difficult to see and required Definity agent decreasing in sensitivity for ischemia. Objective: Vital Signs Temp Pulse Resp BP Pulse Ox 98.3 F 112 H 16 136/70 H 93 09/16/19 07:42 09/16/19 11:13 09/16/19 07:42 09/16/19 07:42 09/16/19 07:42 Oxygen Delivery Method Room Air Weight: 134 lb 4.184 oz Body Mass Index (BMI) 24.5 Finger Stick Blood Glucose 116 Intake and Output for Last 24 Hours 09/14/19 09/15/19 09/16/19 23:59 23:59 23:59 Intake Total 400 / 880 540 / 540 Output Total Balance 399 / 879 540 / 540 General: Awake, Alert, Oriented x 3 HEENT: PERRL, EOMI, Sclera Non Icteric Neck: Supple, Good ROM, No Lymph Node Enlargement Lungs: Clear to auscultation Cardiovascular: Regular Rhythm, Normal S1, Normal S2, No Murmurs, No Rubs, No Gallops Vascular: No Carotid Bruits, Normal Femoral Pulses, Normal Radial Pulses, Normal Dorsalis Pedal Pulse, Normal Posterior Tibial Pulses Abdomen: Bowel Sounds Present, Soft, Non Tender, No HSM, No Organomegaly Extremities: No Cyanosis, No Clubbing, No edema Neurological: No Focal Motor or Sensory Deficit Rhythm: EKG: ECHO: Stress Test: Cardiac Cath: PCI: CT Surgery: Holter monitor: EPS: PPM: CXR: Chest CT Scan: Medical Necessity - Tobacco Use Smoking Status: Former smoker Tobacco Use: Non-smoker Assessment/Plan 1. Coronary artery disease: Patient returns with recurrent exertional substernal chest burning similar to his anginal symptoms prior to his balloon angioplasty of his RCA in-stent restenosis in May 2019. At that time no stenting was performed given the result and his symptoms pretty much abated after that time. 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 He has not had a recent stress test other than in 2015. Given the patient's multivessel coronary disease, he may have restenosis of his previously ballooned in-stent restenosis of his RCA. 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 To better localize areas of ischemia he underwent a treadmill echocardiogram this morning and had no exertional anginal symptoms or chest burning as he had been having at home over the last couple of weeks. He DC'd his treadmill due to hip pain, which has been plaguing him and may require surgical correction in the future. Patient had no evidence of anterior, lateral ischemia but he had poor echo windows requiring Definity agent, thereby decreasing sensitivity. I had a long and thorough discussion with the patient, Dr. Chang, regarding repeat catheterization, the patient declines at this time. He wishes to go home, and if his symptoms recur, he will return to the emergency room. I explained the patient that this would be around the time when he did have repeat scar tissue from his balloon angioplasty in May, and again the patient declines catheterization at this time. Should the patient return with recurrent chest burning, and have a very low threshold to repeat his catheterization, possible intervention of his RCA, and FloWire of his anomalous left circumflex sure his LAD to confirm any significant coronary occlusive ischemic disease. Recommend that the patient continue his baby aspirin, Plavix which he has been compliant with. Would recommend continuing his metoprolol, lisinopril, subcu Lovenox for now, nitroglycerin paste as well. 2. Hyperlipidemia: Continue Lipitor therapy. Repeat lipids are pending. 3. Thank you very much for the opportunity to participate in the cardiac care of your patient. Patient will be followed up with Dr. Chang. Patient may be discharged home. Code Visit Inpatient E&M: 24197 Subs Hosp L2
[2019-09-19 08:26] LABS: Bedside Glucose 116 mg/dL (70-110)
== END 2019-09-16 11:39 | disposition home or self-care (01) ==
LOC: ED 12:47 → PCU 14:21
PROVIDERS: Admitting Provider Internal Medicine; Emergency Provider Emergency Medicine; Family Provider Preventive Medicine Occupational Medicine; PCP Preventive Medicine Occupational Medicine; Referring Provider Internal Medicine; Visit Provider Internal Medicine
DX: R07.89 Other chest pain (principal); E78.5 Hyperlipidemia, unspecified; K21.9 Gastro-esophageal reflux disease without esophagitis; I25.10 Atherosclerotic heart disease of native coronary artery without angina pectoris; I10 Essential (primary) hypertension; R06.09 Other forms of dyspnea; I25.5 Ischemic cardiomyopathy; E11.51 Type 2 diabetes mellitus with diabetic peripheral angiopathy without gangrene; R11.0 Nausea; Z79.899 Other long term (current) drug therapy; Z79.02 Long term (current) use of antithrombotics/antiplatelets; Z79.82 Long term (current) use of aspirin; Z79.84 Long term (current) use of oral hypoglycemic drugs; Z87.891 Personal history of nicotine dependence; Z95.5 Presence of coronary angioplasty implant and graft; Z82.49 Family history of ischemic heart disease and other diseases of the circulatory system
CPT/HCPCS: 36415; 71045; 80048; 82962; 84484; 85025; 93005; 93017; 93306; 93350; 99218; 99285; Q9957; A4216; C8928; C8929; G0378

== ENCOUNTER 2019-11-11 07:28 | Day surgery (SDC) | payer MEDICAID, SELFPAY ==
[2019-11-06 14:17] VITALS: BMI 24.7
[2019-11-07 10:45] LABS: Absolute Lymphocyte Count 2.52 X10^3/uL (0.83-4.51); Absolute Neutrophil Count 4.6 X10^3/uL (2.0-7.7); Basophil# 0.08 X10^3/uL; Eosinophil# 0.18 X10^3/uL; Eosinophils% 2.2 % (0-5); Hematocrit 42.9 % (40-54); Hemoglobin 13.8 g/dL (13.0-16.5); Lymphocyte # 2.52 X10^3/ul (4.0); Lymphocyte % 31.2 % (19-41); Mean Corp Hgb Conc 32.2 g/dL (32-36); Mean Corpuscular Hgb 28.9 pg (27.0-32.0); Mean Corpuscular Volume 89.7 fL (80-94); Mean Platelet Vol. 8.8 fl (6.2-12.0); Monocyte# 0.61 X10^3/uL; Monocyte% 7.5 % (0-10); NRBC Flagged by Analyzer 0 % (0-5); Neutrophil # 4.64 X10^3/uL (2.7-7.7); Neutrophil % 57.5 % (47-70); Platelet Count 259 K/mm3 (150-450); RBC Distribution Width CV 12.2 % (11.6-14.6); RBC Distribution Width SD 39.7 fl (35.1-43.9); Red Blood Count 4.78 M/mm3 (4.6-6.2); White Blood Count 8.1 K/mm3 (4.4-11.0)
[2019-11-07 10:52] LABS: Prothrombin Time (Protime)PT. 12.4 SECONDS (11.7-14.9)
[2019-11-07 11:09] LABS: Anion Gap 4 (5-15); BUN 15 mg/dL (7-18); BUN/Creat Ratio 14.2 RATIO (10-20); Calcium,Total 9.4 mg/dL (8.5-10.1); Chloride 106 mmol/L (98-107); Creatinine, Serum 1.06 mg/dL (0.70-1.30); EST Glomerular Filtration Rate 76 mL/min (>60); Est Glom Filt Rate - Afr Amer 92 mL/min (>60); Glucose 123 mg/dL (74-106); Potassium 4.2 mmol/L (3.5-5.1); Sodium Level 139 mmol/L (136-145)
[2019-11-08 09:13] VITALS: BMI 24.7
[2019-11-11] VITALS (13 sets, daily range): BP systolic 112–137; BP diastolic 56–99; PULSE 74–86; RESP 10–20; TEMP 36.6–37.1; O2SAT 91–98; BMI 25.0
[2019-11-11 09:04] LABS: Microalbumin:Creatinine Ratio 48.7 mg/g CRE (<30 mg/g CRE)
[2019-11-11 09:16] LABS: ALB/GLOB Ratio 1.1 RATIO (0.9-2.4); AST(SGOT) 15 U/L (15-37); Alanine Aminotransfer ALT/SGPT 31 U/L (16-61); Albumin, Serum 4.1 g/dL (3.2-5.0); Alkaline Phosphatase 55 U/L (45-117); Anion Gap 8 (5-15); BUN 20 mg/dL (7-18); Calcium,Total 9.2 mg/dL (8.5-10.1); Chloride 106 mmol/L (98-107); Cholesterol 165 mg/dL (200); Creatinine, Serum 1.05 mg/dL (0.70-1.30); EST Glomerular Filtration Rate 77 mL/min (>60); Est Glom Filt Rate - Afr Amer 93 mL/min (>60); Estimated Creatinine Clearance 59.94 ml/min; Globulin 3.8 g/dL (2.2-4.2); Glucose 142 mg/dL (74-106); High Density Lipoprotein 39 mg/dL; PSA,Total - Annual Screen 0.65 ng/mL (0.00-4.00); Potassium 4.5 mmol/L (3.5-5.1); Protein, Total 7.9 g/dL (6.4-8.2); Sodium Level 140 mmol/L (136-145); Triglycerides 273 mg/dL; Very Low Density Lipoprotein 55 mg/dL (5-40)
--- NOTE | 2019-11-11 13:15 | EKG12_ITS ---
Test Reason : POST PCI Blood Pressure : / mmHG Vent. Rate : 089 BPM Atrial Rate : 089 BPM P-R Int : 186 ms QRS Dur : 104 ms QT Int : 370 ms P-R-T Axes : 044 -33 058 degrees QTc Int : 450 ms Normal sinus rhythm Left axis deviation Abnormal ECG Confirmed by JELANI PRINCE, JESUS ([id number]), editor newspaper EARL LEIVA ([id number]) on 11/13/2019 2:03:00 PM Referred By: Zakiya Mitchell Confirmed By:JESUS PALOMARES MD
[2019-11-11] MEDS: 0.9% Normal Saline 1,000 ML 60 ML IV (16:20)
[2019-11-11] MEDS: Atorvastatin Calcium 20 MG Tablet PO (21:13)
[2019-11-12] VITALS (14 sets, daily range): BP systolic 111–142; BP diastolic 56–86; PULSE 70–87; RESP 10–19; TEMP 36.7–37.3; O2SAT 90–98
[2019-11-12 04:29] LABS: Hematocrit 40.9 % (40-54); Hemoglobin 13.1 g/dL (13.0-16.5); Mean Corpuscular Hgb 28.7 pg (27.0-32.0); Mean Corpuscular Volume 89.7 fL (80-94); Mean Platelet Vol. 8.6 fl (6.2-12.0); Platelet Count 251 K/mm3 (150-450); RBC Distribution Width CV 12.1 % (11.6-14.6); RBC Distribution Width SD 39.6 fl (35.1-43.9); Red Blood Count 4.56 M/mm3 (4.6-6.2); White Blood Count 7.9 K/mm3 (4.4-11.0)
[2019-11-12 04:45] LABS: AST(SGOT) 17 U/L (15-37); Alanine Aminotransfer ALT/SGPT 29 U/L (16-61); Albumin, Serum 3.5 g/dL (3.2-5.0); Alkaline Phosphatase 51 U/L (45-117); Anion Gap 5 (5-15); BUN 15 mg/dL (7-18); BUN/Creat Ratio 15.3 RATIO (10-20); Calcium,Total 8.4 mg/dL (8.5-10.1); Chloride 108 mmol/L (98-107); Creatinine, Serum 0.98 mg/dL (0.70-1.30); EST Glomerular Filtration Rate 84 mL/min (>60); Est Glom Filt Rate - Afr Amer 101 mL/min (>60); Estimated Creatinine Clearance 64.23 ml/min; Globulin 3.5 g/dL (2.2-4.2); Glucose 145 mg/dL (74-106); Sodium Level 140 mmol/L (136-145)
--- NOTE | 2019-11-12 07:21 | PCM.PN.BLA ---
Progress Note Aspirin at discharge? Yes, 81 mg p.o. daily Antiplatelet therapy at discharge? Yes, Plavix 75 mg p.o. daily IVA/ARB at discharge? Yes, lisinopril 5 mg p.o. daily Statin at discharge? Yes, Simvastatin 40 mg p.o. nightly Beta-shannon at discharge? Yes, metoprolol succinate 50 mg p.o. daily STROKE Vital Signs/Narrative: Vital Signs Temp Pulse Resp BP Pulse Ox 11/12/19 07:00 81 18 119/72 92 11/12/19 06:45 90 11/12/19 06:00 81 10 L 128/86 H 95 11/12/19 05:00 72 11 L 127/79 H 96 11/12/19 04:00 99.1 F 80 14 130/56 H 90 11/12/19 03:44 83
--- NOTE | 2019-11-12 07:22 | PCM.DC.CCA ---
Discharge Diet: Low fat/ Low Cholesterol Discharge Activity: Return to Normal Activity May shower in (days): 1 - No tub baths for 5 days May resume sexual activity in: 1-2 weeks Lifting Restrictions: Do not lift anything greater than 10 pounds for 3 days Call your doctor if your incision/area has: Continuous Slow Oozing, Sudden Increased Bleeding, Increased Pain/ Swelling, Increased Redness, Foul Smelling Discharge, Swelling at the incision site Call your doctor if you observe: Fever of 101 or Higher, Shortness of breath, Chest pain Remove Dressing in (days):: 1 Cleanse incision/area with: Soap & Water Additional Instructions: You will continue with Aspirin and Plavix therapy. The goal is to remain on Plavix therapy for 1 year. If anyone asks you to stop your Plavix, please call the [facility] Office at [phone] first. If you have any questions or concerns please call the [facility]. You are scheduled for an office appointment with Dr. Mitchell on 12/02/2019 at 2:30 PM. Allergies/Adverse Reactions: Allergies No Known Allergies Allergy (Verified 09/30/19 13:44) Medications to take at Discharge Aspirin [Aspirin, Baby] 81 mg PO DAILY@0800 01/13/14 Simvastatin [Zocor] 40 mg PO QHS 10/27/14 Alogliptin Benzoate [Alogliptin] 12.5 mg PO DAILY 06/13/19 Metoprolol Succinate 50 mg PO DAILY 06/13/19 lisinopril 5 mg tablet 5 mg PO DAILY 07/09/19 metformin 500 mg tablet,extended release 24 hr 1,000 mg PO BID tab 09/30/19 calcium carbonate 500 mg calcium (1,250 mg) tablet 500 mg PO DAILY 11/06/19 pantoprazole 40 mg tablet,delayed release 40 mg PO DAILY tab 11/06/19 Clopidogrel Bisulfate [Clopidogrel] 75 mg PO DAILY #90 tab 11/12/19 Primary Care Physician: Karthik Brennan DO [Primary Care Provider] - Test Results: Test results from this visit will be discussed in further detail at your follow-up appointment, if applicable. Please Follow Up With: Dr. Mitchell When: 12/02/2019 at 2:30 Proposed Discharge Date: 11/12/19 Cardiac Rehabilitation Info Cardiac Rehabilitation Program Information: Cardiac Rehabilitation is important for patients like you who are recovering from a heart problem. Cardiac rehabilitation programs are recognized as integral to the continued care of the patient with coronary heart disease. The cardiac rehabilitation program is designed to optimize a patient's physical, psychological, and social functioning. Health critical care technician work in cardiac rehabilitation programs and assist you with getting the treatments you need to get stronger and healthier - like exercise, healthy eating habits, and medications. Cardiac rehabilitation has been show to help people with heart problems live longer and have better life enjoyment than people who do not go to cardiac rehabilitation. Please contact the Cardiac Rehabilitation Program at [facility] at in two weeks if you have not heard from them.
--- NOTE | 2019-11-12 08:47 | PCM.PN.CARD ---
Subjectve: Patient seen and evaluated. He denies any chest pain or shortness of breath. He denies any right wrist discomfort. Overall, he states feeling well. Patient's hemoglobin, electrolytes, and kidney function are stable this morning. Objective: Vital Signs Temp Pulse Resp BP Pulse Ox 99.1 F 81 18 119/72 92 11/12/19 04:00 11/12/19 07:00 11/12/19 07:00 11/12/19 07:00 11/12/19 07:00 Oxygen Delivery Method Room Air Weight: 137 lb Body Mass Index (BMI) 25.0 Finger Stick Blood Glucose 116 Intake and Output for Last 24 Hours 11/10/19 11/11/19 11/12/19 23:59 23:59 23:59 Intake Total 625 / 865 240 / 240 Output Total 250 / 250 Balance 375 / 615 240 / 240 General: Healthy Appearing, Awake, Alert, Oriented x 3, Cooperative, No Acute Distress HEENT: Atraumatic Oral: Moist Mucosa Neck: Supple Lungs: Clear to auscultation Cardiovascular: Regular Rhythm, Normal S1, Normal S2 Vascular: No Carotid Bruits Abdomen: Soft Extremities: No Cyanosis, No Clubbing, No edema, Normal Capillary Refill, - - Right wrist: Soft, palpable occult pulse 2+, normal capillary refill, warm, and dry. His dressing is intact. Musculoskeletal: No Erythema, No Warmth Skin: No Rashes Lymphatic: No Lymph Node Enlargement Neurological: No Focal Motor or Sensory Deficit Psych/Mental Status: Appropriate 11/11/19 07:34: Sodium 140, Potassium 4.5, Chloride 106, Carbon Dioxide 26.0, Anion Gap 8, BUN 20 H, Creatinine 1.05, Est GFR (MDRD) Af Amer 93, Est GFR (MDRD) Non-Af 77, BUN/Creatinine Ratio 19.0, Glucose 142 H, Calcium 9.2, Total Bilirubin 0.50, Triglycerides 273 H, Cholesterol 165, LDL Cholesterol 71, VLDL Cholesterol 55 H, HDL Cholesterol 39 L 11/12/19 04:13: WBC 7.9, RBC 4.56 L, Hgb 13.1, Hct 40.9, MCV 89.7, MCH 28.7, MCHC 32.0, Plt Count 251, MPV 8.6 11/12/19 04:13: Sodium 140, Potassium 4.0, Chloride 108 H, Carbon Dioxide 27.0, Anion Gap 5, BUN 15, Creatinine 0.98, Est GFR (MDRD) Af Amer 101, Est GFR (MDRD) Non-Af 84, BUN/Creatinine Ratio 15.3, Glucose 145 H, Calcium 8.4 L, Total Bilirubin 0.40 Rhythm: EKG: ECHO: Stress Test: Cardiac Cath: PCI: CT Surgery: Holter monitor: EPS: PPM: CXR: Chest CT Scan: Medical Necessity - Tobacco Use Smoking Status: Former smoker Assessment/Plan 1. Atherosclerotic Coronary Artery Disease Patient is status post recent stenting. He appears stable on physical exam. He may be discharged for outpatient follow-up. He should continue current medications. He was given extensive education regarding 1 year commitment for Aspirin and Plavix jointly. 2. Ischemic Cardiomyopathy His echocardiogram in August 2019 showed ejection fraction of 35-40%. He denies any symptoms of congestive heart failure. He does not appear to be in a fluid volume overload state. He will continue current medical therapy which includes metoprolol and lisinopril. We will continue to follow on outpatient basis. 3. Diabetes Mellitus He was reminded the importance of diabetic control in relation to cardiovascular health. He acknowledged understanding. 4. Discharge Patient appears stable post angioplasty and stenting. He will be discharged home on current medical therapy and for outpatient follow-up. Ideally, he should begin cardiac rehab. He is open to this idea today. Patient's case was reviewed with Dr. Mitchell Thank you for allowing us to participate in the patients plan of care, if you have any questions please do not hesitate to call. This note was generated using a voice recognition system and there may be incorrect words, spelling or punctuation that were not noted when reviewing the office note prior to saving.
[2019-11-12] MEDS: Lisinopril 5 MG Tablet PO (09:23)
[2019-11-12] MEDS: Clopidogrel Bisulfate 75 MG Tablet PO (09:23)
[2019-11-12] MEDS: Pantoprazole Sodium 40 MG Tablet PO (09:23)
[2019-11-12] MEDS: Aspirin 81 MG TAB.CHEW PO (09:23)
[2019-11-12] MEDS: Metoprolol(XL)Succ 50 MG Tablet PO (09:23)
[2019-11-12] MEDS: Calcium (Elemental) 500 MG Tablet PO (09:23)
[2019-11-12] MEDS: LINAGLIPTIN 5 MG TABLET PO (09:23)
--- NOTE | 2019-11-12 10:00 | EKG12_ITS ---
Test Reason : A.M. EKG Blood Pressure : / mmHG Vent. Rate : 078 BPM Atrial Rate : 078 BPM P-R Int : 162 ms QRS Dur : 100 ms QT Int : 394 ms P-R-T Axes : 059 -40 035 degrees QTc Int : 449 ms Normal sinus rhythm Left axis deviation Abnormal ECG When compared with ECG of 11-NOV-2019 12:06, MANUAL COMPARISON REQUIRED, DATA IS UNCONFIRMED Confirmed by COTY REYNOSO ([id number]), social media editor VIC HERRON ([id number]) on 11/13/2019 3:12:43 PM Referred By: Zakiya Mitchell Confirmed By:COTY REYNOSO
--- NOTE | 2019-11-14 11:58 | CL.I_ITS ---
Patient Name: ROSALIA HE Study Date: 11/11/2019 Performing: Yeimi Mitchell MD Ht: 62 inches 157.48 cm : 1960 Wt: 135.2 lbs 61.23 kg Age: 59 Gender: male BSA: 1.62 PROCEDURE(S) PERFORMED [id number] W OR WO PTCA, SINGLE CORONARY ARTERY CLINICAL PROFILE AND CO-MORBIDITIES Indications: Worsening Angina Heart Failure: None Stress/Imaging Stress/Image Study Performed: No CAD Presentations: Unstable angina. CONCLUSIONS CAD as described. Successful PCI of ISR of mRCA with YOHANNES RECOMMENDATIONS ASA Indefinitley Plavix for at least 12 months Follow up with primary prune washer DESCRIPTION OF PROCEDURE The patient arrived to the procedure lab. The risks and benefits of the procedure as well as a full d escription of our services here and lack of surgical backup were fully explained to the patient and/o r their significant other prior to the catheterization. The Timeout was completed, verifying the brianna ect patient and procedure. The patient's procedural site was prepped and draped in the usual fashion. Local anesthetic was given subcutaneously to right radial region with Lidocaine 2%. Using a modified Seldinger technique, arterial access was obtained via the right ulnar artery a 6Fr sheath was inser lissette.. Left Coronary Artery selective angiography was performed in multiple views using a 5 Fr. JL3.5 catheter. Right Coronary Artery selective angiography was then performed in multiple views using a 5 Fr. JR 4 catheter. Simultaneous pressures were then recorded. LV to AO pullback pressures were then recordedThe images were reviewed and options discussed. A decision was then made to proceed with an Intervention, IVUS or other adjunct procedure. JR 4 Guide catheter was inserted and engaged into the RCA. BMW Guide wire was advanced to the RCA . 2.5 x 12 Emerge Balloon catheter was advanced across lesion in the right coronary, mid. PTCA balloo n inflated at 10 atms for 17 secs. Angiogram performed post balloon dilatation. 3.5 x 12 Synergy Drug Eluting stent was advanced across the lesion in the right coronary, mid. The arterial sheath was p ulled and a TR Band was applied for hemostasis CORONARY ANGIOGRAPHY DOMINANCE: Right Dominant LEFT HEART ASSESSMENT Left Ventricular Ejection Fraction: Not assessed LEFT MAIN: Mild luminal irregularities LEFT ANTERIOR DESCENDING ARTERY: MID LAD: 60 % Stenosis CIRCUMFLEX ARTERY: PROX CIRC: 65 % Stenosis. 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 In 06/03, PTCA alone was done was ISR., In-stent Thrombosis: No, In-stent restenosis: Yes Pre Stenosis: 95 % Pre intervention ANALI flow: 3 PROCEDURE: Drug Eluting Stent with pre dilatation. Post Stenosis: 0 % Post intervention ANALI flow: 3 Lesion Devices: Cardinal 6 Fr JR4 100cm Guide Catheter Hodge .014 BMW Dennard Straight 190cm Daniel Sci EMERGE MR 2.50x12 BALLOON Daniel Sci Synergy MR YOHANNES 3.50x12 COMPLICATIONS No Complications PROCEDURE MEDICATIONS Fentanyl 50 mcg IV Versed 1 mg IV Versed 1 mg IV Versed 0.5 mg IV Oxygen: 2 L/min via nasal cannula Heparin given IA 11/11/2019 09:37:57 Heparin 2000 unit(s) IV 11/11/2019 10:13:35 Verapamil 2.5mg, Ntg 100mcgs, 3000 units of Heparin given IA 11/11/2019 09:37:57 SUMMARY OF HEMODYNAMIC DATA Time AIR REST ECG 08:01:05 LV 117/2, 13 10:04:52 LV 123/2, 14 10:04:58 LVp 121/1, 19 10:05:21 AOp 120/65 (88) 10:05:27 AO 120/65 (88) SA 10:05:28 Signed By Yeimi Mitchell MD On 11/14/2019 11:57:27 Yeimi Mitchell MD
== END 2019-11-12 10:30 | disposition home or self-care (01) ==
LOC: CLSP 07:32 → ICU 11-12 12:25
PROVIDERS: PCP Preventive Medicine Occupational Medicine; Referring Provider Specialist; Visit Provider Specialist
DX: I25.110 Atherosclerotic heart disease of native coronary artery with unstable angina pectoris (principal); I25.5 Ischemic cardiomyopathy; I71.4 Abdominal aortic aneurysm, without rupture; I10 Essential (primary) hypertension; E78.5 Hyperlipidemia, unspecified; K21.9 Gastro-esophageal reflux disease without esophagitis; I73.9 Peripheral vascular disease, unspecified; E11.9 Type 2 diabetes mellitus without complications; Z95.5 Presence of coronary angioplasty implant and graft; Z79.82 Long term (current) use of aspirin; Z79.02 Long term (current) use of antithrombotics/antiplatelets; Z79.84 Long term (current) use of oral hypoglycemic drugs; Z87.891 Personal history of nicotine dependence
CPT/HCPCS: 36415; 80048; 80053; 80061; 82043; 82570; 84153; 85025; 85027; 85610; 85730; 92928; 93005; 93454; 99152; 99153; J7030; J7040; Q9967; C1725; C1769; C1874; C1887; C1894; C9600; G0103

== ENCOUNTER 2021-06-25 09:44 | Emergency (ER) | payer MEDICAID, SELFPAY ==
[2021-06-25 09:45] VITALS: BP 155/95; PULSE 127; RESP 16; TEMP 36.2; O2SAT 94; BMI 23.5
--- NOTE | 2021-06-25 10:10 | EKG12_ITS ---
Test Reason : CP Blood Pressure : / mmHG Vent. Rate : 104 BPM Atrial Rate : 104 BPM P-R Int : 150 ms QRS Dur : 098 ms QT Int : 340 ms P-R-T Axes : 055 -41 067 degrees QTc Int : 447 ms Sinus tachycardia Left axis deviation Abnormal ECG Confirmed by JAZIEL PRINCE, JG ([id number]), editor & co founder EARL LEIVA ([id number]) on 06/28/2021 12:42:57 PM Referred By: PL/GHISLAINE Confirmed By:MATTIE SHERIFF MD
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
[2021-06-25 10:22] LABS: Absolute Lymphocyte Count 2.05 X10^3/uL (0.83-4.51); Absolute Neutrophil Count 8.9 X10^3/uL (2.0-7.7); Basophil# 0.07 X10^3/uL; Basophil% 0.6 % (0-1); Eosinophil# 0.02 X10^3/uL; Eosinophils% 0.2 % (0-5); Hematocrit 43.1 % (40-54); Hemoglobin 14.2 g/dL (13.0-16.5); Lymphocyte # 2.05 X10^3/ul (0.83-4.51); Mean Corp Hgb Conc 32.9 g/dL (32-36); Mean Corpuscular Hgb 29.2 pg (27.0-32.0); Mean Corpuscular Volume 88.7 fL (80-94); Mean Platelet Vol. 8.6 fl (6.2-12.0); Monocyte# 1.04 X10^3/uL; Monocyte% 8.6 % (0-10); NRBC Flagged by Analyzer 0 % (0-5); Neutrophil # 8.85 X10^3/uL (2.7-7.7); Neutrophil % 73.3 % (47-70); Platelet Count 276 K/mm3 (150-450); RBC Distribution Width CV 12.2 % (11.6-14.6); RBC Distribution Width SD 39.8 fl (35.1-43.9); Red Blood Count 4.86 M/mm3 (4.6-6.2); White Blood Count 12.1 K/mm3 (4.4-11.0)
[2021-06-25] MEDS: 0.9% Normal Saline 1,000 ML 1000 ML IV (10:23)
[2021-06-25] MEDS: Morphine 4 MG/ML Syringe IV ×2 (10:23→11:56)
[2021-06-25 10:25] VITALS: O2SAT 97
[2021-06-25 10:42] LABS: ALB/GLOB Ratio 1.2 RATIO (0.9-2.4); AST(SGOT) 29 U/L (15-37); Alanine Aminotransfer ALT/SGPT 48 U/L (16-61); Albumin, Serum 4.4 g/dL (3.2-5.0); Alkaline Phosphatase 55 U/L (45-117); Anion Gap 8 (5-15); BUN 9 mg/dL (7-18); BUN/Creat Ratio 9.3 RATIO (10-20); Calcium,Total 9.3 mg/dL (8.5-10.1); Chloride 106 mmol/L (98-107); Creatinine, Serum 0.96 mg/dL (0.70-1.30); EST Glomerular Filtration Rate 85 mL/min (>60); Est Glom Filt Rate - Afr Amer 102 mL/min (>60); Estimated Creatinine Clearance 63.98 ml/min; Globulin 3.8 g/dL (2.2-4.2); Glucose 176 mg/dL (74-106); Potassium 4.4 mmol/L (3.5-5.1); Protein, Total 8.2 g/dL (6.4-8.2); Sodium Level 140 mmol/L (136-145); Troponin-I HS 5 pg/mL (3.0-78.0)
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
[2021-06-25] MEDS: Ketorolac 15 MG/ML Vial IV (11:56)
[2021-06-25] MEDS: Lidocaine 5% Patch 1 PATCH TOPICAL (11:56)
[2021-06-25] MEDS: oxyCODONE 5 MG Tablet PO (13:13)
[2021-06-25 13:23] VITALS: RESP 18; O2SAT 96
== END 2021-06-25 13:25 | disposition home or self-care (01) ==
PROVIDERS: Emergency Provider Emergency Medicine; PCP Preventive Medicine Occupational Medicine
DX: S02.601A Fracture of unspecified part of body of right mandible, initial encounter for closed fracture (principal); S22.42XA Multiple fractures of ribs, left side, initial encounter for closed fracture; V58.0XXA Driver of pick-up truck or van injured in noncollision transport accident in nontraffic accident, initial encounter; Y93.89 Activity, other specified; Y92.9 Unspecified place or not applicable; Y99.9 Unspecified external cause status; I25.10 Atherosclerotic heart disease of native coronary artery without angina pectoris; I25.5 Ischemic cardiomyopathy; I10 Essential (primary) hypertension; E11.51 Type 2 diabetes mellitus with diabetic peripheral angiopathy without gangrene; E11.65 Type 2 diabetes mellitus with hyperglycemia; E78.5 Hyperlipidemia, unspecified; K21.9 Gastro-esophageal reflux disease without esophagitis; F17.210 Nicotine dependence, cigarettes, uncomplicated; Z79.02 Long term (current) use of antithrombotics/antiplatelets; Z79.82 Long term (current) use of aspirin; Z79.84 Long term (current) use of oral hypoglycemic drugs; Z79.899 Other long term (current) drug therapy
CPT/HCPCS: 70450; 70486; 71260; 72125; 80053; 84484; 85025; 93005; 96361; 96374; 96375; 96376; 99284; J7030; Q9967; A4216

== ENCOUNTER 2021-06-26 20:12 | Emergency (ER) | payer MEDICAID, SELFPAY ==
[2021-06-26 20:14] VITALS: BP 159/103; PULSE 94; RESP 18; TEMP 36.6; O2SAT 92; BMI 24.7
--- NOTE | 2021-06-26 20:17 | RAD_ITS ---
STUDY: X-RAY - RIGHT SHOULDER REASON FOR EXAM: Male, 61 years old. pain possible dislocation TECHNIQUE: 2 view(s) of the shoulder. COMPARISON: None. FINDINGS: Normal glenohumeral articulation. Normal acromioclavicular joint. Normal acromion. Normal humeral head and visualized proximal humerus. The soft tissue structures are unremarkable. Normal visualized pulmonary apex. RAD/Shoulder min 2 Views IMPRESSION: No fracture or malalignment. Electronically Signed: Ignacio Fraire MD (Brooks) at 20:48 EDT , Service support ,
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
[2021-06-26] MEDS: diazePAM 5 MG Tablet PO (21:45)
--- NOTE | 2021-06-26 21:55 | ED.RN ---
PT REFUSES TORADOL INJECTION. DEMANDS MORE PERCOCET, STATES HE IS ALMOST OUT. PT FURTHER STATES HE HAS BEEN TAKING THE PILLS NEEDED, TOOK AT LEAST 6 YESTERDAY.
== END 2021-06-26 22:02 | disposition home or self-care (01) ==
PROVIDERS: Emergency Provider Emergency Medicine; PCP Preventive Medicine Occupational Medicine
DX: M62.830 Muscle spasm of back (principal); I25.10 Atherosclerotic heart disease of native coronary artery without angina pectoris; I25.5 Ischemic cardiomyopathy; I71.4 Abdominal aortic aneurysm, without rupture; I10 Essential (primary) hypertension; E11.65 Type 2 diabetes mellitus with hyperglycemia; E11.51 Type 2 diabetes mellitus with diabetic peripheral angiopathy without gangrene; E78.5 Hyperlipidemia, unspecified; K21.9 Gastro-esophageal reflux disease without esophagitis; F17.210 Nicotine dependence, cigarettes, uncomplicated; Z79.02 Long term (current) use of antithrombotics/antiplatelets; Z79.82 Long term (current) use of aspirin; Z79.84 Long term (current) use of oral hypoglycemic drugs; Z79.899 Other long term (current) drug therapy
CPT/HCPCS: 73030; 96372; 99283

== ENCOUNTER → 2022-03-14 | Outpatient (CLI) | payer MEDICAID, SELFPAY ==
--- NOTE | 2022-03-14 11:14 | STRESSREP ---
Stress Test Report Date: 03-14-2022 Procedure: Pharmacologic stress nuclear imaging study Indications: Chest pain; CAD; PCI; ischemic mediated cardiomyopathy Consent: Per the patient Procedure: The patient underwent pharmacologic (Regadenoson 0.4mg ) evaluation with a peak heart rate of 117 beats per minute (72%predicted maximal heart rate) and a peak blood pressure of 160/78 mmHg. The baseline ECG demonstrated normal sinus rhythm. The peak pharmacologic ECG demonstrated sinus rhythm with subtle nonspecific ST/T wave abnormality with resolution towards baseline in recovery. There were no cardiac dysrhythmias pretest, during pharmacologic infusion, or recovery. There was no complaint of chest discomfort during pharmacologic infusion or recovery. The examination was discontinued secondary to completion of protocol. Impression: 1. Pharmacologic (Regadenoson) evaluation 2. Peak pharmacologic ECG with continued sinus rhythm with subtle nonspecific ST/T wave abnormality with resolution towards baseline in recovery. 3. There were no cardiac dysrhythmias pretest, during pharmacologic infusion, or recovery. 4. Nuclear images pending Myocardial perfusion imaging study: Technique: The patient was injected with 11.9 millicuries of technetium 99m Cardiolite and subsequently rest SPECT Cardiolite nuclear imaging was obtained in the horizontal long, vertical long, and short axis views. The patient underwent pharmacologic (Regadenoson) evaluation with a peak heart rate of 117 beats per minute (72% percent predicted maximal heart rate) and a peak blood pressure of 160/78 mmHg. The patient was injected with 33.3 millicuries of technetium 99m Cardiolite and subsequently stress SPECT Cardiolite nuclear imaging was obtained in the horizontal long, vertical long, and short axis views. A gated Cardiolite study at peak stress was obtained. Interpretation: Rest and stress SPECT Cardiolite nuclear imaging status post realignment, normalization, and attenuation correction demonstrate relative uniform tracer uptake and myocardial perfusion appearing within normal limits. There is end systolic thickening and brightening. The gated Cardiolite study demonstrates myocardial thickening and inward wall motion. The reported LVEF is 51%. Impression: 1. Rest and stress SPECT Cardiolite nuclear imaging demonstrate relative uniform tracer uptake and myocardial perfusion appearing within normal limits. 2. The gated Cardiolite study reports an LVEF of 51%. This note was generated with liveBooksation software. It may contain incorrect words, spelling, and punctuation that were not noted in checking the note before signing.
== END | disposition home or self-care (01) ==
LOC: CVS 06:46
PROVIDERS: PCP Preventive Medicine Occupational Medicine; Referring Provider Physician Assistant Medical; Visit Provider Physician Assistant Medical
DX: R07.9 Chest pain, unspecified (principal); Z95.5 Presence of coronary angioplasty implant and graft
CPT/HCPCS: 78452; 93017; A9500; A4216; J2785